=== PATIENT | male | born 1940 | race Caucasian/White ===

== ENCOUNTER 2017-02-20 10:07 | Inpatient (IN) ==
[2017-02-20] MEDS ORDERED: 0.9 % Sodium Chloride 500 ML IVC ONE (10:11)
--- NOTE | 2017-02-20 10:30 | Emergency Department Note ---
START Narrative - START START: I examined this patient and my medical decision-making was reviewed with the NETWORK ARCHITECT/PA/Advanced Practice Nurse/Resident Physician. I agree with the documented findings, disposition and treatment plan as described except to the extent set forth below. ED attending: Patient's emergency medicine resident Dr. Gonzalez. Please see copy of this note for H&P evaluation and management and ED disposition. We both had independent [id number] time in contact with this patient. Briefly: A 76-year-old male by EMS from the [facility] for shortness of breath and "A. fib". Patient has a history of esophageal cancer currently on active chemotherapy Orley [place]. No prior PE or DVT. Complaining of bilateral increasing swelling in both lower extremities. His EKG shows sinus tachycardia at about 135 bpm however there does not appear to be any signs of atrial fibrillation or irregularity. Patient is not on any current or anti-oral coagulants. Patient's PE score 4 pulse criteria for pulmonary embolism is moderate. Patient will obtain a chest x-ray D dimer troponin and other screening labs. Patient will get a small fluid bolus challenge of 500 mL normal saline to treat overdress the tachycardia. Disposition pending. Provided 45 minutes critical care service with this patient.
--- NOTE | 2017-02-20 10:31 | Emergency Department Note ---
Disposition Clinical Impression: Pleural effusion Disposition: Admitted As Inpatient Condition: Good Time of Disposition: 15:11 General Adult HPI - General Chief complaint: ED Arrhythmia/Palpitations Stated complaint: "AFIB" Time Seen by Provider: 02/20/17 10:09 Source: patient, family, EMS Limitations: no limitations Nursing Notes Reviewed: Yes Vital Signs Reviewed: Yes - History of Present Illness HPI Narrative: [facility] and [facility] d-dimer. As well as A. fib. Planing of a cough that's been productive for several months. Denies any chest pain. Also complaining of bilateral ankle swelling. This began this morning. Pain Scale: 0 - Related Data Home Medications Medication Instructions Recorded Confirmed RX: Albuterol Sulfate [Albuterol 2 puff IH Q6HR PRN 04/29/16 02/09/17 Inhaler] RX: Finasteride [Proscar] 5 mg GTUBE DAILY 04/29/16 02/09/17 RX: Nitroglycerin [Nitrostat] 0.4 mg SL AD PRN 04/29/16 02/09/17 RX: Magic Mouthwash [Magic 10 ml PO QID PRN 08/03/16 02/09/17 Mouthwash BLM] RX: Lanolin/Mineral Oil [Eucerin 1 appl TP DAILY 08/06/16 02/09/17 Original Lotion] RX: Loperamide [Imodium] 2 mg PO AD PRN 08/06/16 02/09/17 RX: Mag Hydrox/Al Hydrox/Simeth 10 ml PO TID 08/06/16 02/09/17 [Maalox] RX: Propylene Glycol/Peg 400 [Kro 1 drop OP QID 08/06/16 02/09/17 Lubricating Rlf 0.3-0.4%] RX: Terazosin [Hytrin] 2 mg PO HS 08/06/16 02/09/17 RX: Nicotine Patch [Nicoderm] 14 mg TD DAILY 12/31/16 02/09/17 Fludrocortisone Acetate [Florinef] 0.1 mg PO DAILY 01/19/17 02/09/17 Hydrocortisone 2.5% CREAM [Cortaid] 1 appl TP BID 01/19/17 02/09/17 Lactose-Reduced Food/Fiber 250 ml GTUBE 5XD 01/19/17 02/09/17 [Isosource 1.5 Oscar Liquid] Lansoprazole [Prevacid] 30 mg GTUBE DAILY 01/19/17 02/09/17 Oxycodone HCl [Oxaydo] 5 mg PO Q6H PRN 01/19/17 02/09/17 Prochlorperazine Maleate 10 mg PO Q6HR PRN 01/19/17 02/09/17 [Compazine] RX: Ondansetron HCl 4 mg GTUBE Q6H PRN 01/19/17 02/09/17 Sucralfate [Carafate] 1 gm GTUBE QID 01/19/17 02/09/17 Propylene Glycol/Peg 400 [Systane 15 ml OP QID PRN 02/09/17 02/09/17 Liquid Gel Eye Drops] Previous Rx's Medication Instructions Recorded Lactobacillus [Culturelle] 1 each PO TID #42 cap.sprink 02/09/17 RX: FentaNYL PATCH [Duragesic] 12 mcg TD Q72H #10 patch.td72 02/09/17 RX: FentaNYL PATCH [Duragesic] 25 mcg TD Q72H #10 patch.td72 02/09/17 metroNIDAZOLE [Flagyl] 500 mg PO TID #30 tablet 02/09/17 RX: Dexamethasone [Decadron] 4 mg PO DAILY #30 tab 02/16/17 Allergies Allergy/AdvReac Type Severity Reaction Status Date / Time No Known Allergies Allergy Verified 02/09/17 08:18 All systems ED: reviewed and negative except as stated. Constitutional: Denies: fever, chills ENT ED: Denies: throat pain, congestion Cardiovascular: Denies: chest pain, palpitations, dyspnea on exertion, syncope Respiratory: Reports: cough, dyspnea Gastrointestinal: Denies: abdominal pain, nausea, vomiting, diarrhea Musculoskeletal: Denies: back pain, neck pain Neurological: Denies: headache, weakness Past Medical History - Past Medical History Medical history: Reports: atrial fibrillation, cancer, COPD, hyperlipidemia, hypertension, malignancy, other Surgical history: Reports: cataract, other Psychiatric history: Reports: no psych history - Social History Smoking Status: Former smoker Smokeless Tobacco Status: No Alcohol use: Reports: none, recent Drug use: Reports: none Physical Exam - General Limitations: no limitations General appearance: alert, in no apparent distress - Head Head exam: atraumatic, normocephalic - Eye Eye exam: Present: normal appearance, PERRL, EOMI - ENT ENT exam: normal exam, normal oropharynx, mucous membranes moist - Neck Neck exam: Present: normal inspection, full ROM, trachea midline - Chest Chest inspection: Present: normal inspection, symmetric chest wall rise - Respiratory Respiratory exam: Present: wheezes (Diffusely) - Cardiovascular Cardiovascular exam: Present: normal rhythm, tachycardia, normal heart sounds - Abdominal Exam Abdominal exam: Present: soft, Non-Tender, normal bowel sounds - Extremities Exam Extremities exam: Present: normal inspection, full ROM, normal capillary refill , pedal edema (Very mild edema to both ankles bilaterally.). Absent: tenderness - Back Exam Back exam: Present: normal inspection, full ROM. Absent: tenderness - Neurological Exam Neurological exam: Present: alert, oriented X3 - Psychiatric Psychiatric exam: Present: normal affect, normal mood - Skin Skin exam: Present: warm, dry, intact, normal color. Absent: rash, cyanosis Course Course Narrative: Patient complaining of shortness of breath for over a year. States that he has had a cough that's been productive with yellow greenish sputum. Also complaining of bilateral ankle swelling. [facility]. I cannot find this in his lab work. With his history of cancer I expect his d-dimer to be elevated. We did repeat this year and it was still elevated so we CTA patient's chest. He is found to have large bilateral pleural effusions. Also some airspace disease. He denies any chest pain. He states that shortness of breath has been there for over a year. He states his sputum has been increased recently. He has failed outpatient therapy several times with antibiotics. He has no other complaints at this time. Patient had a chest pain workup as well as a CTA of his chest. We will admit patient for the effusions. Patient was initially given a small fluid bolus due to his tachycardia. This resolved it well. He is not febrile and had no white counts we did not run the sepsis criteria. - Reevaluation(s) Reevaluation #1: Patient is tachycardic. We've given him a small fluid bolus but he does have a history of CHF so we do not want to fluid overload him. We will also get a lactate. He is not febrile he is here. Time: 13:34 - Consultations Consultation #1: Dr Schmitt accepted Pt in stable condition. he is requesting no antibiotics at this time. Time: 13:39 Vital Signs Temperature 97.8 F 02/20/17 10:09 Pulse Rate 130 02/20/17 10:09 Respiratory Rate 18 02/20/17 10:09 Blood Pressure 159/93 02/20/17 10:09 O2 Sat by Pulse Oximetry 94 02/20/17 10:09 Temperature 97.6 F 02/20/17 14:18 Pulse Rate 126 02/20/17 14:18 Respiratory Rate 17 02/20/17 14:18 Blood Pressure 165/83 02/20/17 14:18 O2 Sat by Pulse Oximetry 95 02/20/17 14:18 Oxygen Delivery Oxygen Delivery Room Air Medical Decision Making - Medical Records Medical records reviewed: Yes I reviewed the patient's medical records. - Lab Data Lab results reviewed: Yes I reviewed the patient's lab results. Result diagrams: 02/20/17 11:20 Lab Results 02/20/17 02/20/17 02/20/17 Range/Units 11:20 11:20 11:20 D-Dimer 1181 H (0-500) ng/mLFEU Sodium 132 L (136-145) mEq/L Potassium 3.4 L (3.5-4.5) mEq/L Chloride 96 L (98-109) mEq/L Carbon Dioxide 27 (19-29) mEq/L BUN 8 (8-26) mg/dL Creatinine 0.56 L (0.72-1.25) mg/dL Est GFR ( Amer) > 60 (> 60) Est GFR (Non-Af Amer) > 60 (> 60) BUN/Creatinine Ratio 14 (6-26) Glucose 104 H (70-99) mg/dL Calculated Osmolality 273 L (280-300) Calcium 9.0 (8.6-10.8) mg/dL B-Natriuretic Peptide 776 H (0-100) pg/mL - Radiology Data Radiology results reviewed: Yes I reviewed the patient's radiology results. Chest X-Ray 02/20/17 10:28 IMPRESSION: Right basilar airspace disease with pleural effusion. Recommend correlation with any clinical findings of pneumonia. Asymmetric edema felt to be less likely D/ / Uriel Garcia MD / Uriel Garcia MD Interpreting Provider: Uriel Garcia MD Chest CTA 02/20/17 12:12 IMPRESSION: No evidence of pulmonary embolism. Very large right pleural effusion. Large left pleural effusion. Moderate bibasilar atelectasis. Pneumonia possible in either lower lobe. No definite CHF. No finding worrisome for malignancy. Slight bullous changes. RECOMMENDATIONS: Ultrasound-guided unilateral or bilateral thoracenteses for diagnostic and therapeutic benefits. D/ / Dilan Chu MD / Dilan Chu MD Interpreting Provider: Dilan Chu MD - EKG Data EKG #1 EKG attestation: Yes I reviewed and interpreted this EKG. EKG results narrative: Sinus tachycardia at a rate of 136. IA interval is 178. QRS duration is 115. QT is 3:30. QTC is 410. No signs of acute ischemia. Patient was in A. fib on previous EKG dated 12/31/2016.
[2017-02-20 11:44] LABS: BUN/Creatinine Ratio 14 (6-26); Blood Urea Nitrogen 8 mg/dL (8-26); Carbon Dioxide 27 mEq/L (19-29); Chloride 96 mEq/L (98-109); Glucose 104 mg/dL (70-99); Osmolality,Calculated 273 (280-300); Potassium 3.4 mEq/L (3.5-4.5); Sodium 132 mEq/L (136-145); eGFR For African Americans > 60 (> 60); eGFR For Non-African Americans > 60 (> 60)
[2017-02-20] MEDS ORDERED: Furosemide 40 MG/4 ML VIAL ONE (14:43)
[2017-02-20] MEDS ORDERED: Furosemide 40 MG/4 ML VIAL IVP ONE (14:48)
[2017-02-20] MEDS ORDERED: Acetaminophen 325 MG TABLET PO PRN (15:06)
[2017-02-20] MEDS ORDERED: Ondansetron 4 MG/2 ML VIAL IVP PRN (15:06)
[2017-02-20] MEDS ORDERED: Naloxone 0.4 MG/ML INJ IVP PRN (15:06)
[2017-02-20] MEDS ORDERED: *HR* Morphine 2 MG/ML SYRINGE IVP PRN (15:06)
--- NOTE | 2017-02-20 15:18 | Internal Med History&Physical ---
Date of Encounter: 02/20/17 Time of Encounter: 15:14 Assessment and Plan (1) Pleural effusion Current visit: No Status: Acute Bilateral pleural effusions worse on the right than the left likely secondary to systolic CHF exacerbation versus malignancy related (less likely) Start Lasix IV twice a day, strict I's and O's and daily weight Consult pulmonary for thoracentesis therapeutic and diagnostic Fluid restriction Omeprazole for GI prophylaxis and sequential compression devices for DVT prophylaxis. Admitted as inpatient, expected to stay more than 2 midnights. DNR CC. Time spent on this admission 40 minutes. High risk of respiratory failure (2) Clostridium difficile diarrhea Current visit: Yes Status: Acute Apparently the patient was diagnosed with C. difficile and was on metronidazole since the beginning of this month Confirm testing (3) HCAP (healthcare-associated pneumonia) Current visit: Yes Status: Acute Start cefepime, consider vancomycin if blood pressure drops (4) Hyponatremia Current visit: No Status: Acute Monitor sodium (5) Severe protein-calorie malnutrition Current visit: No Status: Acute (6) Atrial fibrillation with RVR Current visit: No Status: Acute Likely secondary to bilateral pleural effusions Start Lasix IV May start metoprolol (7) Esophageal cancer Current visit: No Status: Chronic Continue treatment as outpatient Qualifiers: Malignant neoplasm of esophagus location: lower third Qualified Code(s): C15.5 - Malignant neoplasm of lower third of esophagus Internal Medicine - H&P: HPI Chief complaint: Shortness of breath Admitted From: Emergency Dept History of present illness: Mr. Cantu is a 76 year old male with a past medical history of esophageal cancer on chemotherapy, hypertension, COPD not oxygen dependent, systolic CHF who was transferred from [facility] due to concerns of atrial fibrillation with rapid ventricular response. Patient says that his legs have been more swollen for the past few days and has been complaining of respiratory distress for the past few weeks but got worse earlier today at 4 AM. She has been having a dry cough. CT angiogram of the chest shows a very large right pleural effusion and a large left pleural effusion, pneumonia cannot be ruled out. Potassium is 3.4 sodium is 132 BNP 776 d-dimer is 1181. There is no evidence of pulmonary emboli. His heart rate was in the 130s, blood pressure is 163/90. Patient is feeling still very short of breath. 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), CHF (Systolic CHF echocardiogram from July 2016 shows an ejection fraction of 40%), COPD (Not oxygen dependent), GERD, hyperlipidemia, hypertension, malignancy, other ( Chronic pain syndrome, pulmonary hypertension, pericardial effusions, gallstones , chronic pain syndrome, peripheral vascular disease, olecranon bursitis, chronic prostatitis, hyperlipidemia) Psychiatric history: no psych history - Past Surgical History Surgical History: cataract, other (PEG tube) - Social History Smoking Status: Former smoker (Quit in December, used to smoke 1 pack per day) Smokeless Tobacco Status: No Alcohol use: none, recent Drug use: none - Family History Brother Hx Family Cancer: Yes (Esophageal cancer) Sister Hx Family Neurologic Disorders: Yes (Alzeheimer) Father Hx Family Cardiac Disorders: Yes (heart attack) - Additional Family History Additional family history: Brother with stomach cancer and esophageal cancer, sister with Alzheimer's and father with CAD Internal Medicine - H&P: Meds Albuterol Sulfate [Albuterol Inhaler] 2 puff IH Q6HR PRN 04/29/16 [History] Finasteride [Proscar] 5 mg GTUBE DAILY 04/29/16 [History] Nitroglycerin [Nitrostat] 0.4 mg SL AD PRN 04/29/16 [History] Magic Mouthwash [Magic Mouthwash BLM] 10 ml PO QID PRN 08/03/16 [History] Lanolin/Mineral Oil [Eucerin Original Lotion] 1 appl TP DAILY 08/06/16 [History] Loperamide [Imodium] 2 mg PO AD PRN 08/06/16 [History] Mag Hydrox/Al Hydrox/Simeth [Maalox] 10 ml PO TID 08/06/16 [History] Propylene Glycol/Peg 400 [Kro Lubricating Rlf 0.3-0.4%] 1 drop OP QID 08/06/16 [ History] Terazosin [Hytrin] 2 mg PO HS 08/06/16 [History] Nicotine Patch [Nicoderm] 14 mg TD DAILY 12/31/16 [History] Fludrocortisone Acetate [Florinef] 0.1 mg PO DAILY 01/19/17 [History] Hydrocortisone 2.5% CREAM [Cortaid] 1 appl TP BID 01/19/17 [History] Lactose-Reduced Food/Fiber [Isosource 1.5 Oscar Liquid] 250 ml GTUBE 5XD 01/19/17 [History] Lansoprazole [Prevacid] 30 mg GTUBE DAILY 01/19/17 [History] Ondansetron HCl 4 mg GTUBE Q6H PRN 01/19/17 [History] Oxycodone HCl [Oxaydo] 5 mg PO Q6H PRN 01/19/17 [History] Prochlorperazine Maleate [Compazine] 10 mg PO Q6HR PRN 01/19/17 [History] Sucralfate [Carafate] 1 gm GTUBE QID 01/19/17 [History] FentaNYL PATCH [Duragesic] 12 mcg TD Q72H #10 patch.td72 02/09/17 [Rx] FentaNYL PATCH [Duragesic] 25 mcg TD Q72H #10 patch.td72 02/09/17 [Rx] Lactobacillus [Culturelle] 1 each PO TID #42 cap.sprink 02/09/17 [Rx] Propylene Glycol/Peg 400 [Systane Liquid Gel Eye Drops] 15 ml OP QID PRN [History] metroNIDAZOLE [Flagyl] 500 mg PO TID #30 tablet 02/09/17 [Rx] Dexamethasone [Decadron] 4 mg PO DAILY #30 tab 02/16/17 [Rx] Allergies No Known Allergies Allergy (Verified 02/09/17 08:18) All Systems PM: A 10-system review of systems was performed and is negative for pertinent findings except as documented above in the HPI. Review of systems: Denies any chest pain, no abdominal pain, no dysuria. Other systems out of the 10 reviewed were negative - Constitutional Vitals: Temp Pulse Resp BP Pulse Ox 97.6 F 126 17 165/83 95 02/20/17 14:18 02/20/17 14:18 02/20/17 14:18 02/20/17 14:18 02/20/17 14:18 General appearance: Present: cachectic, A&O X 3 - Head Head exam: Present: atraumatic, normocephalic - Eye Eye exam: Present: PERRL, conjuntiva pink, sclera anicteric Pupils: Present: PERRL - Neck Neck exam general surgery: Present: supple, trachea midline. Absent: lymphadenopathy - Respiratory Respiratory exam: Present: CTAB. Absent: accessory muscle use, rales, rhonchi, wheezes Additional comments: Blunted breath sounds bilaterally - Cardiovascular Cardiovascular exam: Present: RRR, +S1, +S2. Absent: diastolic murmur, gallop, rubs, systolic murmur - GI/Abdominal GI/Abdominal exam: Present: normal bowel sounds, soft, no peritoneal signs. Absent: distended, tenderness Additional comments: PEG tube in place - Extremities Exam Extremities exam: Present: warm, radial pulses palpable and symetrical. Absent : calf tenderness, cyanotic, pedal edema - Neurological Exam Neurological exam: Present: CN II-XII intact, oriented X3, no focal deficits. Absent: pronater drift, facial droop, speech deficit - Skin Skin exam: Present: dry, intact Internal Med - H&P Results - Labs CBC & Chem 7: 02/20/17 11:20
[2017-02-20] MEDS: Furosemide 40 MG/4 ML VIAL IVP SCH (16:07)
[2017-02-20] MEDS: *HR* FentaNYL PATCH 25 MCG PATCH TD SCH (16:10)
[2017-02-20] MEDS: *HR* FentaNYL PATCH 12 MCG PATCH TD SCH (16:10)
[2017-02-20] MEDS ORDERED: *HR* Metoprolol 5 MG/5 ML VIAL IVP PRN (16:31)
[2017-02-20] MEDS: Cefepime HCl 1,000 MG in D5% in Water (Mini-Bag+) 100 ML IVPB SCH (16:52)
[2017-02-20] MEDS: metroNIDAZOLE 500 MG TABLET PO SCH (20:07)
[2017-02-20] MEDS: *HR* OxyCODONE Immed Rel 5 MG TABLET PO PRN (20:26)
[2017-02-20] MEDS ORDERED: GI Cocktail 40 ML EACH PO ONE (22:42)
[2017-02-21 04:14] LABS: INR 1.3; Prothrombin Time 14.5 Seconds (9.4-12.1)
[2017-02-21 04:16] LABS: Hematocrit 29.3 % (37.5-50.1); Hemoglobin 9.6 g/dL (12.9-16.9); Mean Corpuscular HGB Conc 32.8 g/dL (31.6-35.5); Mean Corpuscular Hemoglobin 30.1 pg (28.0-33.3); Mean Corpuscular Volume 91.8 fL (83.0-100.0); Platelet Count 262 K/mcL (140-400); Red Blood Count 3.19 M/mcL (4.19-5.50); Red Cell Distribution Width 16.8 % (11.5-14.5)
[2017-02-21 04:24] LABS: BUN/Creatinine Ratio 16 (6-26); Blood Urea Nitrogen 9 mg/dL (8-26); Calcium 8.8 mg/dL (8.6-10.8); Carbon Dioxide 26 mEq/L (19-29); Chloride 97 mEq/L (98-109); Glucose 92 mg/dL (70-99); Osmolality,Calculated 270 (280-300); Potassium 3.6 mEq/L (3.5-4.5); Sodium 131 mEq/L (136-145); eGFR For African Americans > 60 (> 60); eGFR For Non-African Americans > 60 (> 60)
[2017-02-21] MEDS: Cefepime HCl 1,000 MG in D5% in Water (Mini-Bag+) 100 ML IVPB SCH ×2 (06:01→17:40)
[2017-02-21] MEDS: *HR* OxyCODONE Immed Rel 5 MG TABLET PO PRN (08:48)
[2017-02-21] MEDS: Finasteride 5 MG TABLET PO SCH (08:48)
[2017-02-21] MEDS: metroNIDAZOLE 500 MG TABLET PO SCH (08:48)
[2017-02-21] MEDS: Furosemide 40 MG/4 ML VIAL IVP SCH ×2 (08:49→17:40)
[2017-02-21] MEDS ORDERED: Lidocaine 1% 20 ML MDV ID ONE (09:52)
--- NOTE | 2017-02-21 10:21 | Pulmonology Consult Note ---
Date of Encounter: 02/21/17 Time of Encounter: 07:45 Assessment and Plan (1) Bilateral pleural effusion Current Visit: Yes Status: Acute I have assessed the patient and found him in no acute distress, however patient feels more difficulty breathing and recommended diagnostic and therapeutic thoracentesis for comfort and even Pleurx pleural catheter after confirming this is malignant effusion. I evaluated with ultrasound at the bedside, unfortunately was not able to drain any fluid which is most likely due to the nature of the fluid is being thick. This was discussed with primary team and perhaps IR can attempt to drain the fluid with a larger tube and if they can do that then to send cytology. If malignant then Pleurx pleural catheter can be considered as outpatient. It is very hard to rule out pneumonia and this patient and empiric antibiotics is reasonable until cultures are back. Thank you very much for the consultation, will follow-up.. (2) COPD (chronic obstructive pulmonary disease) Current Visit: Yes Status: Chronic Patient history of COPD and to resume his home bronchodilators. Qualifiers: COPD type: unspecified COPD Qualified Code(s): J44.9 - Chronic obstructive pulmonary disease, unspecified (3) Esophageal cancer Current Visit: No Status: Chronic Qualifiers: Malignant neoplasm of esophagus location: lower third Qualified Code(s): C15.5 - Malignant neoplasm of lower third of esophagus History of Present Illness Consult date: 02/21/17 Requesting physician: Karan Jorgensen Reason for consult: dyspnea, pleural effusion Chief complaint: Shortness of breath History of present illness: This is a very pleasant 76-year-old male with significant history of esophageal cancer on chemotherapy as well as COPD and systolic congestive heart failure was transferred from [facility] due to concerns of A. fib with RVR. Patient was found to have large mainly right-sided pleural effusion as well as a moderate size effusion in the left side. Patient has been having more shortness of breath in the past few weeks which is worse in since yesterday. He also has dry cough and denies any hemoptysis or chest pain. His main problem complaining of pain in his hip and back. He denies any fever or chill and denies any history of TB. I was consulted for evaluation of his chief complaints as well as a thoracentesis. Patient has somewhat hard of hearing. 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), CHF (Systolic CHF echocardiogram from July 2016 shows an ejection fraction of 40%), COPD (Not oxygen dependent), GERD, hyperlipidemia, hypertension, malignancy, other ( Chronic pain syndrome, pulmonary hypertension, pericardial effusions, gallstones , chronic pain syndrome, peripheral vascular disease, olecranon bursitis, chronic prostatitis, hyperlipidemia) Psychiatric history: no psych history - Past Surgical History Surgical History: cataract, other (PEG tube) - Social History Smoking Status: Former smoker (Quit in December, used to smoke 1 pack per day) Smokeless Tobacco Status: No Alcohol use: none, recent Drug use: none - Family History Brother Hx Family Cancer: Yes (Esophageal cancer) Sister Hx Family Neurologic Disorders: Yes (Alzeheimer) Father Hx Family Cardiac Disorders: Yes (heart attack) Medications and Allergies Albuterol Sulfate [Albuterol Inhaler] 2 puff IH Q6HR PRN 04/29/16 [History] Magic Mouthwash [Magic Mouthwash BLM] 10 ml PO Q4H PRN 08/03/16 [History] Lanolin/Mineral Oil [Eucerin Original Lotion] 1 appl TP DAILY 08/06/16 [History] Loperamide [Imodium] 2 mg PO AD PRN 08/06/16 [History] Mag Hydrox/Al Hydrox/Simeth [Maalox] 20 ml PO TID PRN 08/06/16 [History] Propylene Glycol/Peg 400 [Kro Lubricating Rlf 0.3-0.4%] 1 drop OP QID 08/06/16 [ History] Nicotine Patch [Nicoderm] 14 mg TD DAILY 12/31/16 [History] Fludrocortisone Acetate [Florinef] 0.1 mg PO DAILY 01/19/17 [History] Hydrocortisone 2.5% CREAM [Cortaid] 1 appl TP TID PRN 01/19/17 [History] Lactose-Reduced Food/Fiber [Isosource 1.5 Oscar Liquid] 250 ml GTUBE 5XD 01/19/17 [History] Lansoprazole [Prevacid] 30 mg PO DAILY 01/19/17 [History] Ondansetron HCl 4 mg PO Q6H PRN 01/19/17 [History] Oxycodone HCl [Oxaydo] 5 mg PO Q8H PRN 01/19/17 [History] Sucralfate [Carafate] 1 gm GTUBE QID 01/19/17 [History] FentaNYL PATCH [Duragesic] 12 mcg TD Q72H #10 patch.td72 02/09/17 [Rx] FentaNYL PATCH [Duragesic] 25 mcg TD Q72H #10 patch.td72 02/09/17 [Rx] Budesonide/Formoterol 160/4.5 [Symbicort 160/4.5] 1 puff IH BID 02/20/17 [ History] Diphenhydramine HCl [Nighttime Sleep Aid] 50 mg PO BID PRN 02/20/17 [History] Docusate [Colace] 100 mg PO BID 02/20/17 [History] Lactobacillus [Culturelle] 1 cap PO TID 02/20/17 [History] Levalbuterol HCl [Xopenex Neb] 1.25 mg IH Q4H PRN 02/20/17 [History] Levalbuterol [Xopenex] 1 puff IH Q6H PRN 02/20/17 [History] Nicotine [Nicotine Patch] 7 mg TD DAILY 02/20/17 [History] Polyethylene Glycol 3350 [Smoothlax] 17 gm PO DAILY 02/20/17 [History] Prochlorperazine Maleate 10 mg PO Q6H PRN 02/20/17 [History] Sodium Chloride IRRigation [0.9% Sodium Chl For Irrigation 250 Ml Bottle] 20 ml GTUBE BID 02/20/17 [History] Tamsulosin [Flomax] 0.4 mg PO HS 02/20/17 [History] Allergies No Known Allergies Allergy (Verified 02/09/17 08:18) All Systems: A 10-system review of systems was performed and is negative for pertinent findings except as documented above in the HPI. Physical Examination Vital Signs: Vital Signs, Last 4 Hours Temp Pulse Resp BP Pulse Ox 02/21/17 09:13 94 02/21/17 07:37 97.6 F 80 16 145/72 92 General appearance: no acute distress Eyes: nonicteric ENT: oropharynx dry Neck: supple, no JVD Effort: mildly labored (When he mows around) Inspection: hyperextended Auscultation: bilateral: diminished breath sounds (Right more than left) Percussion: bilateral: dull Cardiovascular: irregular rhythm Gastrointestinal: normoactive bowel sounds, non-distended, other (Patient has a PEG tube) Extremities: no cyanosis normal mental status, non-focal exam mood appropriate Results - Laboratory Findings CBC and BMP: 02/21/17 03:59 02/21/17 03:59 PT/INR, D-dimer PT 14.5 Seconds (9.4-12.1) H 02/21/17 03:59 D-Dimer 1181 ng/mLFEU (0-500) H 02/20/17 11:20 Abnormal lab findings: Abnormal lab results RBC 3.19 M/mcL (4.19-5.50) L 02/21/17 03:59 Hgb 9.6 g/dL (12.9-16.9) L 02/21/17 03:59 Hct 29.3 % (37.5-50.1) L 02/21/17 03:59 RDW 16.8 % (11.5-14.5) H 02/21/17 03:59 PT 14.5 Seconds (9.4-12.1) H 02/21/17 03:59 D-Dimer 1181 ng/mLFEU (0-500) H 02/20/17 11:20 Sodium 131 mEq/L (136-145) L 02/21/17 03:59 Chloride 97 mEq/L (98-109) L 02/21/17 03:59 Creatinine 0.56 mg/dL (0.72-1.25) L 02/21/17 03:59 Calculated Osmolality 270 (280-300) L 02/21/17 03:59 B-Natriuretic Peptide 776 pg/mL (0-100) H 02/20/17 11:20 - Diagnostic Findings CT scan - chest: report reviewed, image reviewed - Clinical Findings Intake & Output: Intake & Output 02/20/17 02/21/17 02/21/17 23:59 07:59 15:59 Intake Total 160 / 160 1400 / 1400 Output Total 0 / 0 Balance 160 / 160 1400 / 1400 Weight 59.421 kg Consult Discharge Plan - Plan [facility]: [facility] Care Provider[facility] -
[2017-02-21] MEDS ORDERED: Ipratropium/Albuterol Neb 3 ML IH PRN (10:32)
--- NOTE | 2017-02-21 10:37 | Procedure Note ---
Date of procedure: 02/21/17 Pre-op diagnosis: Bilateral pleural effusion with dyspnea Post-op diagnosis: same Procedure: Diagnostic and therapeutic thoracentesis Medications: Local lidocaine 1% 20 mL No immediate complications After obtaining informed consent and timeout was called, the patient was placed in a sitting position. Using ultrasound, the right hemithorax was examined revealing a moderately sized pleural effusion. The best entry site was marked. The area was prepped in the usual sterile fashion. Fluid was not able to be aspirated using a catheter 8 range over 18-gauge needle. Patient's condition did not change after the procedure. Chest x-ray was ordered for any evidence of pneumothorax or complications. Anesthesia: local Surgeon: Symone Wong Disposition: floor
--- NOTE | 2017-02-21 12:44 | Electrocardiograph Report ---
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
--- NOTE | 2017-02-21 14:57 | Internal Med Progress Note ---
Date of Encounter: 02/21/17 Time of Encounter: 14:54 - Assessment and plan (1) Pleural effusion Current Visit: No Status: Acute Assessment and plan: Bilateral pleural effusions worse on the right than the left likely secondary to malignancy versus systolic CHF exacerbation(less likely) May continue Lasix IV twice a day, strict I's and O's and daily weight Consulted pulmonary for thoracentesis therapeutic and diagnostic, procedure was attempted unsuccessfully as apparently the fluid is extremely thick and was not able to be drained by Dr. Gonzalez We will consult interventional radiology in the morning to attempt thoracentesis versus chest tube next Might need Pleurx catheter (2) Clostridium difficile diarrhea Current Visit: Yes Status: Acute Assessment and plan: Discontinue metronidazole as Clostridium difficile he was negative (3) HCAP (healthcare-associated pneumonia) Current Visit: Yes Status: Acute Assessment and plan: Continue cefepime day 2 [address] scan shows bilateral pleural effusions right worse on the left with possible infiltrates bilaterally (4) Hyponatremia Current Visit: No Status: Acute (5) Severe protein-calorie malnutrition Current Visit: No Status: Acute (6) Atrial fibrillation with RVR Current Visit: No Status: Acute Assessment and plan: Likely secondary to bilateral pleural effusions Continue metoprolol (7) Esophageal cancer Current Visit: No Status: Chronic Assessment and plan: Continue treatment as outpatient - Subjective Interval history: shortness of breath persists, denies any chest pain, no abdominal pain, no dysuria, no diarrhea, no dizziness or fevers - Constitutional Vitals: Temp Pulse Resp BP Pulse Ox 97.6 F 72 16 124/65 95 02/21/17 11:37 02/21/17 11:37 02/21/17 11:37 02/21/17 11:37 02/21/17 11:37 General appearance: Present: cachectic, A&O X 3 - Head Head exam: Present: atraumatic, normocephalic - Eye Eye exam: Present: PERRL, conjuntiva pink, sclera anicteric Pupils: Present: PERRL - Neck Neck exam general surgery: Present: supple, trachea midline. Absent: lymphadenopathy - Respiratory Respiratory exam: Present: CTAB. Absent: accessory muscle use, rales, rhonchi, wheezes Additional comments: Basilar Blunted breath sounds bilaterally - Cardiovascular Cardiovascular exam: Present: RRR, +S1, +S2. Absent: diastolic murmur, gallop, rubs, systolic murmur - GI/Abdominal GI/Abdominal exam: Present: normal bowel sounds, soft, no peritoneal signs. Absent: distended, tenderness Additional comments: PEG tube in place - Extremities Exam Extremities exam: Present: warm, radial pulses palpable and symetrical. Absent : calf tenderness, cyanotic, pedal edema - Neurological Exam Neurological exam: Present: CN II-XII intact, oriented X3, no focal deficits. Absent: pronater drift, facial droop, speech deficit - Skin Skin exam: Present: dry, intact Internal Medicine: Result - Labs CBC & Chem 7: 02/21/17 03:59 02/21/17 03:59 Labs: Short CBC 02/21/17 Range/Units 03:59 WBC 5.9 (4.3-11.1) K/mcL Hgb 9.6 L (12.9-16.9) g/dL Hct 29.3 L (37.5-50.1) % Plt Count 262 (140-400) K/mcL [facility] 02/21/17 03:59 Sodium 131 L Potassium 3.6 Chloride 97 L Carbon Dioxide 26 BUN 9 Creatinine 0.56 L Glucose 92 Calcium 8.8 - ABG Interpretation ABG results: PT/INR, D-dimer PT 14.5 Seconds (9.4-12.1) H 02/21/17 03:59 D-Dimer 1181 ng/mLFEU (0-500) H 02/20/17 11:20 - Impressions Impressions Chest X-Ray 02/21/17 09:52 IMPRESSION: Stable chest, demonstrating bilateral pleural effusions, with bibasilar atelectasis/infiltrate, superimposed on COPD. D/ / 02/21/2017 10:29:08 Kevin Brown MD / millie Interpreting Provider: Kevin Brown MD Consult Discharge Plan - Plan [facility]errals: [facility] [Primary Care Provider] -
[2017-02-21] MEDS: Budesonide/Formoterol 160/4.5 MDI IH SCH (20:03)
[2017-02-22 04:30] LABS: Hematocrit 32.6 % (37.5-50.1); Hemoglobin 10.6 g/dL (12.9-16.9); Mean Corpuscular HGB Conc 32.5 g/dL (31.6-35.5); Mean Corpuscular Hemoglobin 29.9 pg (28.0-33.3); Mean Corpuscular Volume 92.1 fL (83.0-100.0); Mean Platelet Volume 10.7 fL (9.4-12.4); Platelet Count 314 K/mcL (140-400); Red Blood Count 3.54 M/mcL (4.19-5.50); Red Cell Distribution Width 16.8 % (11.5-14.5)
[2017-02-22 04:39] LABS: BUN/Creatinine Ratio 22 (6-26); Blood Urea Nitrogen 14 mg/dL (8-26); Calcium 9.3 mg/dL (8.6-10.8); Carbon Dioxide 26 mEq/L (19-29); Chloride 93 mEq/L (98-109); Glucose 114 mg/dL (70-99); Osmolality,Calculated 271 (280-300); Potassium 3.4 mEq/L (3.5-4.5); Sodium 130 mEq/L (136-145); eGFR For African Americans > 60 (> 60); eGFR For Non-African Americans > 60 (> 60)
[2017-02-22] MEDS: Cefepime HCl 1,000 MG in D5% in Water (Mini-Bag+) 100 ML IVPB SCH ×2 (05:37→17:12)
[2017-02-22] MEDS: Furosemide 40 MG/4 ML VIAL IVP SCH ×2 (07:51→17:12)
[2017-02-22] MEDS: Finasteride 5 MG TABLET PO SCH (07:51)
[2017-02-22] MEDS: Budesonide/Formoterol 160/4.5 MDI IH SCH ×2 (08:16→20:27)
--- NOTE | 2017-02-22 09:13 | Pulmonology Progress Note ---
<SeunAly calderon - Last Filed: 02/22/17 09:29> Date of Encounter: 02/22/17 Time of Encounter: 09:13 Assessment and Plan (1) Bilateral pleural effusion Current Visit: Yes Status: Acute Mr. Cantu presented with shortness of breath found to have a large left pleural effusion and very large right pleural effusion on CT of the chest performed 02/20/2017. Therapeutic thoracentesis was attempted yesterday evening without success given the nature of the fluid was likely too thick. Today he continues to have the feeling of shortness of breath or maintains oxygen saturations greater than 90% on room air. He complains of right sided chest pain is described as sharp. - Physical examination demonstrated diminished breath sounds in the bilateral lower lung bases right worse than left. Dullness to percussion in the lung bases. - Patient has a known history of systolic heart failure with an ejection fraction of 40%, BNP was around 700 with low suspicion that his current presentation is from CHF exacerbation. Atrial fibrillation is rate controlled. - Consult was placed to interventional radiology to perform thoracentesis - Cytology to be performed on pleural fluid with high suspicion for malignancy. - Patient may require Pleurx catheter placement. (2) COPD (chronic obstructive pulmonary disease) Current Visit: Yes Status: Chronic Patient is a known history of COPD, currently clinically stable without signs of exacerbation. - Continue home bronchodilators Qualifiers: COPD type: unspecified COPD Qualified Code(s): J44.9 - Chronic obstructive pulmonary disease, unspecified (3) Esophageal cancer Current Visit: No Status: Chronic Patient has known neoplasms a lower third of his esophagus. He states that his last chemotherapy was in January. Qualifiers: Malignant neoplasm of esophagus location: lower third Qualified Code(s): C15.5 - Malignant neoplasm of lower third of esophagus Subjective Principal diagnosis: Pleural effusion Interval history: Mr. Cantu 76-year-old male seen and evaluated the patient bedside this morning. He is sitting up alert awake interactive no acute distress complaining of some mild right-sided chest pain. He states that his chest pain started becoming intolerable last evening but has subsided this morning. He described the chest pain is sharp and localized to his right lateral chest. He continues to have shortness of breath which he says is exacerbated by leaning back. He is awaiting his procedure today has no other concerns or complaints. Objective PUL Vital signs: Last Vital Signs Temp 97.7 F 02/22/17 06:50 Pulse 99 02/22/17 06:50 Resp 18 02/22/17 06:50 BP 157/66 02/22/17 06:50 Pulse Ox 97 02/22/17 06:50 General appearance: no acute distress, alert, other (Very thin male cachectic appearing.) Eyes: nonicteric ENT: oropharynx moist Neck: supple, no lymphadenopathy, no JVD Effort: normal Auscultation: bilateral: diminished breath sounds (Patient has diminished breath sounds in the lower lung bases, clear to auscultation upper lung marks.) Percussion: bilateral: dull (Dalai percussion on the right lung to midway) Gastrointestinal: normoactive bowel sounds, hypoactive bowel sounds, non- distended Integumentary: normal Extremities: no cyanosis, no edema, no clubbing, pink and warm Musculoskeletal: no deformities normal mental status, non-focal exam mood appropriate, affect normal Results - Laboratory Findings CBC and BMP: 02/22/17 03:10 02/22/17 03:10 PT/INR, D-dimer PT 14.5 Seconds (9.4-12.1) H 02/21/17 03:59 D-Dimer 1181 ng/mLFEU (0-500) H 02/20/17 11:20 Abnormal lab findings: Abnormal lab results RBC 3.54 M/mcL (4.19-5.50) L 02/22/17 03:10 Hgb 10.6 g/dL (12.9-16.9) L 02/22/17 03:10 Hct 32.6 % (37.5-50.1) L 02/22/17 03:10 RDW 16.8 % (11.5-14.5) H 02/22/17 03:10 PT 14.5 Seconds (9.4-12.1) H 02/21/17 03:59 D-Dimer 1181 ng/mLFEU (0-500) H 02/20/17 11:20 Sodium 130 mEq/L (136-145) L 02/22/17 03:10 Potassium 3.4 mEq/L (3.5-4.5) L 02/22/17 03:10 Chloride 93 mEq/L (98-109) L 02/22/17 03:10 Creatinine 0.64 mg/dL (0.72-1.25) L 02/22/17 03:10 Glucose 114 mg/dL (70-99) H 02/22/17 03:10 Calculated Osmolality 271 (280-300) L 02/22/17 03:10 B-Natriuretic Peptide 776 pg/mL (0-100) H 02/20/17 11:20 - Clinical Findings Intake & Output: Intake & Output 02/21/17 02/22/17 02/22/17 23:59 07:59 15:59 Intake Total 100 / 100 Balance 100 / 100 Weight 58.604 kg Consult Discharge Plan - Plan Referrals: [facility] [Primary Care Provider] - <Stevie Vázquez W - Last Filed: 02/22/17 16:22> Date of Encounter: 02/22/17 Objective PUL Vital signs: Last Vital Signs Temp 97.4 F L 02/22/17 12:45 Pulse 76 02/22/17 12:45 Resp 18 02/22/17 12:45 BP 156/61 02/22/17 12:45 Pulse Ox 98 02/22/17 12:45 Results - Laboratory Findings CBC and BMP: 02/22/17 03:10 02/22/17 03:10 PT/INR, D-dimer PT 14.5 Seconds (9.4-12.1) H 02/21/17 03:59 D-Dimer 1181 ng/mLFEU (0-500) H 02/20/17 11:20 Abnormal lab findings: Abnormal lab results RBC 3.54 M/mcL (4.19-5.50) L 02/22/17 03:10 Hgb 10.6 g/dL (12.9-16.9) L 02/22/17 03:10 Hct 32.6 % (37.5-50.1) L 02/22/17 03:10 RDW 16.8 % (11.5-14.5) H 02/22/17 03:10 PT 14.5 Seconds (9.4-12.1) H 02/21/17 03:59 D-Dimer 1181 ng/mLFEU (0-500) H 02/20/17 11:20 Sodium 130 mEq/L (136-145) L 02/22/17 03:10 Potassium 3.4 mEq/L (3.5-4.5) L 02/22/17 03:10 Chloride 93 mEq/L (98-109) L 02/22/17 03:10 Creatinine 0.64 mg/dL (0.72-1.25) L 02/22/17 03:10 Glucose 114 mg/dL (70-99) H 02/22/17 03:10 Calculated Osmolality 271 (280-300) L 02/22/17 03:10 B-Natriuretic Peptide 776 pg/mL (0-100) H 02/20/17 11:20 Pleural Appearance Hazy (Clear) A 02/22/17 11:30 Pleural Tot Nuc Cell 4741 TNC/mcL (0-1000) H 02/22/17 11:30 - Clinical Findings Intake & Output: Intake & Output 02/22/17 02/22/17 02/22/17 07:59 15:59 23:59 Intake Total 160 / 160 Output Total 1680 / 1680 Balance -1520 / -1520 Weight 58.604 kg - Attending Attestation I examined this patient and my medical decision-making was reviewed with the TOP SPOTTER/PA/Advanced Practice Nurse/Resident Physician. I agree with the documented findings, disposition and treatment plan as described except to the extent set forth below. 76-year-old with a history of esophageal carcinoma found to have bilateral effusions right greater than left status post chest tube today. Patient has had approximate a 1600 mL out of right pigtail drain would clamp at this time Ok to re-open the drain to suction in the morning. Based upon output will consider reimage with CT scan. Pleural fluid analysis pending - if malignant may be candidate for Pleurx catheter Cont treatment for CHF per primary medicine service. We will continue to follow
--- NOTE | 2017-02-22 11:58 | IR Procedure Note ---
Date of procedure: 02/22/17 Consent Obtained: Written consent Timeout: Correct patient and procedure verified, Correct site verified, Time out performed, Skin prep completed Local anesthetic: Lidocaine 1% Indications: Right effusion Procedure Performed: Chest tube placement. Site/Technique: Right chest Results/Findings: 14fr drain placed after failed thora with 8fr Estimated blood loss (cc): 1 Complications: None; Tolerated procedure well Post Procedure Treatment Plan: Monitoring in pts room
--- NOTE | 2017-02-22 13:35 | Internal Med Progress Note ---
Date of Encounter: 02/22/17 Time of Encounter: 13:33 - Assessment and plan (1) Pleural effusion Current Visit: No Status: Acute Assessment and plan: Bilateral pleural effusions worse on the right than the left likely secondary to malignancy versus systolic CHF exacerbation(less likely) May continue Lasix IV twice a day, strict I's and O's and daily weight Consulted pulmonary for thoracentesis therapeutic and diagnostic, procedure was attempted unsuccessfully as apparently the fluid is extremely thick and was not able to be drained by Dr. Gonzalez Interventional radiology placed chest tube lab test sent including cytology Might need Pleurx catheter (2) Clostridium difficile diarrhea Current Visit: Yes Status: Acute Assessment and plan: Discontinued metronidazole as Clostridium difficile he was negative (3) HCAP (healthcare-associated pneumonia) Current Visit: Yes Status: Acute Assessment and plan: Continue cefepime day 3 CT scan shows bilateral pleural effusions right worse on the left with possible infiltrates bilaterally (4) Hyponatremia Current Visit: No Status: Acute (5) Severe protein-calorie malnutrition Current Visit: No Status: Acute (6) Atrial fibrillation with RVR Current Visit: No Status: Acute Assessment and plan: Likely secondary to bilateral pleural effusions Continue metoprolol (7) Esophageal cancer Current Visit: No Status: Chronic Assessment and plan: Continue treatment as outpatient - Subjective Interval history: Feeling less short of breath , denies any chest pain, no abdominal pain, no dysuria, no diarrhea, no dizziness or fevers - Constitutional Vitals: Temp Pulse Resp BP Pulse Ox 97.4 F L 76 18 156/61 98 02/22/17 12:45 02/22/17 12:45 02/22/17 12:45 02/22/17 12:45 02/22/17 12:45 General appearance: Present: cachectic, A&O X 3 - Head Head exam: Present: atraumatic, normocephalic - Eye Eye exam: Present: PERRL, conjuntiva pink, sclera anicteric Pupils: Present: PERRL - Neck Neck exam general surgery: Present: supple, trachea midline. Absent: lymphadenopathy - Respiratory Respiratory exam: Present: CTAB. Absent: accessory muscle use, rales, rhonchi, wheezes Additional comments: Left base blunted breath sounds Right base chest tube in place with yellowish fluid - Cardiovascular Cardiovascular exam: Present: RRR, +S1, +S2. Absent: diastolic murmur, gallop, rubs, systolic murmur - GI/Abdominal GI/Abdominal exam: Present: distended (PEG tube), normal bowel sounds, soft, no peritoneal signs. Absent: tenderness - Extremities Exam Extremities exam: Present: warm, radial pulses palpable and symetrical. Absent : calf tenderness, cyanotic, pedal edema - Neurological Exam Neurological exam: Present: CN II-XII intact, oriented X3, no focal deficits. Absent: pronater drift, facial droop, speech deficit - Skin Skin exam: Present: dry, intact Internal Medicine: Result - Labs CBC & Chem 7: 02/22/17 03:10 02/22/17 03:10 Labs: Short CBC 02/22/17 Range/Units 03:10 WBC 9.0 D (4.3-11.1) K/mcL Hgb 10.6 L (12.9-16.9) g/dL Hct 32.6 L (37.5-50.1) % Plt Count 314 (140-400) K/mcL [facility] 02/22/17 03:10 Sodium 130 L Potassium 3.4 L Chloride 93 L Carbon Dioxide 26 BUN 14 Creatinine 0.64 L Glucose 114 H Calcium 9.3 - ABG Interpretation ABG results: PT/INR, D-dimer PT 14.5 Seconds (9.4-12.1) H 02/21/17 03:59 D-Dimer 1181 ng/mLFEU (0-500) H 02/20/17 11:20 - Impressions Impressions Chest X-Ray 02/22/17 11:57 IMPRESSION: 1. Small right apical pneumothorax following placement of a right-sided chest tube. 2. Small bilateral pleural effusions, not significantly changed. 3. Increasing pulmonary vascular congestion. Results of this examination were communicated to Dr. Chappell at 12:46 p.m. on 02/22/2017. D/ / Jose Guillen MD / Jose Guillen MD Interpreting Provider: Jose Guillen MD Consult Discharge Plan - Plan [facility]errals: [facility] [Primary Care Provider] -
[2017-02-22 14:41] LABS: Glucose,Pleural Fluid 123 mg/dL (No Ref Range); LDH,Pleural Fluid 244 Units/L (No Ref Range); Total Protein,Pleural Fluid 2.5 g/dL (No Ref Range); Triglycerides, Pleural Fluid 8 mg/dL (No Ref Range)
[2017-02-22 14:43] LABS: Amylase,Pleural Fluid 15 Units/L (No Ref Range)
[2017-02-22 14:44] LABS: RBC,Pleural Fluid < 0.002 M/mcL
[2017-02-22 15:24] LABS: Appearance of Pleural Fl Hazy (Clear)
[2017-02-23 05:26] LABS: Hematocrit 29.8 % (37.5-50.1); Hemoglobin 9.7 g/dL (12.9-16.9); Mean Corpuscular HGB Conc 32.6 g/dL (31.6-35.5); Mean Corpuscular Hemoglobin 29.8 pg (28.0-33.3); Mean Corpuscular Volume 91.4 fL (83.0-100.0); Mean Platelet Volume 10.4 fL (9.4-12.4); Platelet Count 265 K/mcL (140-400); Red Blood Count 3.26 M/mcL (4.19-5.50); Red Cell Distribution Width 16.8 % (11.5-14.5)
[2017-02-23 05:36] LABS: BUN/Creatinine Ratio 24 (6-26); Blood Urea Nitrogen 15 mg/dL (8-26); Carbon Dioxide 30 mEq/L (19-29); Chloride 92 mEq/L (98-109); Glucose 104 mg/dL (70-99); Lactate Dehydrogenase 182 Units/L (159-327); Osmolality,Calculated 275 (280-300); Potassium 3.6 mEq/L (3.5-4.5); Sodium 132 mEq/L (136-145); eGFR For African Americans > 60 (> 60); eGFR For Non-African Americans > 60 (> 60)
[2017-02-23 05:37] LABS: Albumin 2.6 g/dL (3.5-5.0)
[2017-02-23] MEDS: Cefepime HCl 1,000 MG in D5% in Water (Mini-Bag+) 100 ML IVPB SCH (05:57)
--- NOTE | 2017-02-23 07:01 | Pulmonology Progress Note ---
Date of Encounter: 02/23/17 Time of Encounter: 07:01 Assessment and Plan (1) Pleural effusion Current Visit: Yes Status: Acute 76-year-old gentleman with history of COPD and esophageal cancer undergoing chemoradiation presenting with bilateral pleural effusions status post placement of small bore chest during on right side yesterday Chest x-ray was notable for small apical pneumothorax after placement of chest tube no air leak when I examined the patient today and he is comfortable I suspect if anything this is related to pneumothorax ex vacuo. He has drained approximately 1800 mL over last 24 hours initial fluid analysis showed exudative neutrophil predominant process consistent with parapneumonic effusion He is being covered with antimicrobials presently and will continue this for 7 days likely could be transitioned to Augmentin or respiratory fluoroquinolone by mouth to complete coverage Recommend noncontrasted CT CT scan of the chest today to follow-up on drainage and chest tube placement can also evaluate if there is any significant residual pneumothorax as well as underlying parenchymal changes after reexpansion of the lung He does have an elevated BNP and elevated the discretion of the primary medicine services to adjust diuretic regimen as needed Final cytology pending if positive for malignancy although seeming less likely based upon initial fluid analysis may be a candidate for Pleurx catheter down the line if reaccumulation of pleural fluid is rapid. (2) Pneumonia involving right lung Current Visit: No Status: Acute Qualifiers: Pneumonia type: due to unspecified organism Lung location: unspecified part of lung Qualified Code(s): J18.9 - Pneumonia, unspecified organism (3) Esophageal cancer Current Visit: No Status: Chronic Qualifiers: Malignant neoplasm of esophagus location: lower third Qualified Code(s): C15.5 - Malignant neoplasm of lower third of esophagus Subjective Principal diagnosis: Pleural effusion Interval history: Patient did well overnight he is not requiring any supplemental oxygen he says that breathing is not painful or difficult is not experiencing any significant pain associated with smallbore chest tube placement yesterday. Objective PUL Vital signs: Last Vital Signs Temp 98.1 F 02/23/17 02:56 Pulse 81 02/23/17 02:56 Resp 15 02/23/17 02:56 BP 152/80 02/23/17 02:56 Pulse Ox 96 02/23/17 02:56 General appearance: no acute distress, other (He is thin and frail appearing) Eyes: nonicteric Effort: normal Auscultation: bilateral: diminished breath sounds Cardiovascular: regular rate and rhythm Gastrointestinal: normoactive bowel sounds, non-tender Extremities: no edema Results - Laboratory Findings CBC and BMP: 02/23/17 04:00 02/23/17 04:00 PT/INR, D-dimer PT 14.5 Seconds (9.4-12.1) H 02/21/17 03:59 D-Dimer 1181 ng/mLFEU (0-500) H 02/20/17 11:20 Abnormal lab findings: Abnormal lab results RBC 3.26 M/mcL (4.19-5.50) L 02/23/17 04:00 Hgb 9.7 g/dL (12.9-16.9) L 02/23/17 04:00 Hct 29.8 % (37.5-50.1) L 02/23/17 04:00 RDW 16.8 % (11.5-14.5) H 02/23/17 04:00 PT 14.5 Seconds (9.4-12.1) H 02/21/17 03:59 D-Dimer 1181 ng/mLFEU (0-500) H 02/20/17 11:20 Sodium 132 mEq/L (136-145) L 02/23/17 04:00 Chloride 92 mEq/L (98-109) L 02/23/17 04:00 Carbon Dioxide 30 mEq/L (19-29) H 02/23/17 04:00 Creatinine 0.62 mg/dL (0.72-1.25) L 02/23/17 04:00 Glucose 104 mg/dL (70-99) H 02/23/17 04:00 Calculated Osmolality 275 (280-300) L 02/23/17 04:00 B-Natriuretic Peptide 776 pg/mL (0-100) H 02/20/17 11:20 Albumin 2.6 g/dL (3.5-5.0) L 02/23/17 04:00 Pleural Appearance Hazy (Clear) A 02/22/17 11:30 Pleural Tot Nuc Cell 4741 TNC/mcL (0-1000) H 02/22/17 11:30 - Microbiology Findings Microbiology Findings: Microbiology, Last 48 Hours 02/22/17 11:30 Body Fluid Culture - Preliminary Pericardial Fluid - Diagnostic Findings Chest x-ray: report reviewed, image reviewed - Clinical Findings Intake & Output: Intake & Output 02/22/17 02/22/17 02/23/17 15:59 23:59 07:59 Intake Total 160 / 160 100 / 100 Output Total 1680 / 1680 940 / 940 1100 / 1100 Balance -1520 / -1520 -840 / -840 -1100 / -1100 Weight 57.1 kg Consult Discharge Plan - Plan Referrals: [facility] [Primary Care Provider] -
[2017-02-23] MEDS: Finasteride 5 MG TABLET PO SCH (07:31)
[2017-02-23] MEDS: Furosemide 40 MG/4 ML VIAL IVP SCH ×2 (07:31→17:13)
[2017-02-23] MEDS: *HR* OxyCODONE Immed Rel 5 MG TABLET PO PRN ×2 (10:08→20:16)
[2017-02-23] MEDS: Budesonide/Formoterol 160/4.5 MDI IH SCH ×2 (10:17→21:02)
[2017-02-23] MEDS: *HR* FentaNYL PATCH 25 MCG PATCH TD SCH (15:31)
[2017-02-23] MEDS: *HR* FentaNYL PATCH 12 MCG PATCH TD SCH (15:31)
--- NOTE | 2017-02-23 16:51 | Internal Med Progress Note ---
Date of Encounter: 02/23/17 Time of Encounter: 10:00 - Assessment and plan (1) Pleural effusion Current Visit: Yes Status: Acute Assessment and plan: exudate, possible parapneumonic effusion, continue antibiotics, pulmonary following pneumothorax noted in ct today, will continue with chest tube and re check a CXR tomorrow in am. D/W patient. (2) COPD (chronic obstructive pulmonary disease) Current Visit: Yes Status: Chronic Assessment and plan: not in exacerbation now. Qualifiers: COPD type: unspecified COPD Qualified Code(s): J44.9 - Chronic obstructive pulmonary disease, unspecified (3) Atrial fibrillation with RVR Current Visit: No Status: Acute Assessment and plan: Likely secondary to bilateral pleural effusions Continue metoprolol controlled ventricular response. (4) Pneumonia Current Visit: No Status: Acute Qualifiers: Pneumonia type: aspiration pneumonia Aspiration pneumonia type: due to regurgitated food Laterality: right Lung location: middle lobe of lung Qualified Code(s): J69.0 - Pneumonitis due to inhalation of food and vomit (5) Esophageal cancer Current Visit: No Status: Chronic Assessment and plan: Continue treatment as outpatient Qualifiers: Malignant neoplasm of esophagus location: lower third Qualified Code(s): C15.5 - Malignant neoplasm of lower third of esophagus - Subjective Interval history: 1st encounter with the patient, denies fever, feels better today, no shortness of breath during this encounter. chest tube placed. - Constitutional Vitals: Temp Pulse Resp BP Pulse Ox 97.6 F 94 16 114/73 96 02/23/17 14:55 02/23/17 14:55 02/23/17 14:55 02/23/17 14:55 02/23/17 14:55 General appearance: Present: cachectic, A&O X 3 Exam: right sided chest tube placed. - Head Head exam: Present: atraumatic, normocephalic - Eye Eye exam: Present: PERRL, conjuntiva pink, sclera anicteric Pupils: Present: PERRL - Neck Neck exam general surgery: Present: supple, trachea midline. Absent: lymphadenopathy - Respiratory Respiratory exam: Present: CTAB. Absent: accessory muscle use, rales, rhonchi, wheezes Additional comments: dimishied breath oskar dsin right base. chest tube placed. - Cardiovascular Cardiovascular exam: Present: RRR, +S1, +S2. Absent: diastolic murmur, gallop, rubs, systolic murmur - GI/Abdominal GI/Abdominal exam: Present: normal bowel sounds, soft, no peritoneal signs. Absent: distended, tenderness - Extremities Exam Extremities exam: Present: warm, radial pulses palpable and symetrical. Absent : calf tenderness, cyanotic, pedal edema - Neurological Exam Neurological exam: Present: CN II-XII intact, oriented X3, no focal deficits. Absent: pronater drift, facial droop, speech deficit - Skin Skin exam: Present: dry, intact Internal Medicine: Result - Labs CBC & Chem 7: 02/23/17 04:00 02/23/17 04:00 Labs: Short CBC 02/23/17 Range/Units 04:00 WBC 7.1 (4.3-11.1) K/mcL Hgb 9.7 L (12.9-16.9) g/dL Hct 29.8 L (37.5-50.1) % Plt Count 265 (140-400) K/mcL BMP 02/23/17 04:00 Sodium 132 L Potassium 3.6 Chloride 92 L Carbon Dioxide 30 H BUN 15 Creatinine 0.62 L Glucose 104 H Calcium 9.0 Liver Function 02/23/17 Range/Units 04:00 Albumin 2.6 L (3.5-5.0) g/dL - ABG Interpretation ABG results: PT/INR, D-dimer PT 14.5 Seconds (9.4-12.1) H 02/21/17 03:59 D-Dimer 1181 ng/mLFEU (0-500) H 02/20/17 11:20 - Impressions Impressions Chest CT 02/23/17 08:00 IMPRESSION: Small to moderate-sized right pneumothorax with associated right pleural catheter. The right pleural effusion has resolved. Stable moderate-sized left pleural effusion. Several scattered pulmonary nodules within both lungs present on previous PET-CT. Continued follow-up examination is suggested. The lesions appear to be largely stable since previous PET-CT of 05/08/2016, given differences in technique. Stable pulmonary arterial enlargement compatible with pulmonary arterial hypertension. Stable left adrenal mass likely representing a benign adenoma measuring 2.3 x 1.7 cm. The lesion has been stable since 08/14/2015. Partial visualization of sclerotic changes within the C6 and C7 vertebral bodies. D/ / 02/23/2017 09:11:08 Karlo Tavares MD / earnold Interpreting Provider: Karlo Tavares MD Consult Discharge Plan - Plan [facility]errals: [facility] [Primary Care Provider] - (Patient is a [place] [facility] [employer] PCP and will follow up with patient once he is discharged. Please just call or have patient call the [facility] at discharge)
[2017-02-23] MEDS ORDERED: Levofloxacin 750 MG/150 ML 750 MG/150 ML BAG IVPB SCH (20:00)
[2017-02-24 04:46] LABS: Basophils % 0.2 %; Eosinophils % 0.6 %; Hematocrit 29.8 % (37.5-50.1); Hemoglobin 9.8 g/dL (12.9-16.9); Immature Granulocytes % 0.2 % (0-4); Lymphocytes # 0.5 K/mcL (0.6-4.6); Lymphocytes % 7.5 %; Mean Corpuscular HGB Conc 32.9 g/dL (31.6-35.5); Mean Corpuscular Hemoglobin 29.8 pg (28.0-33.3); Mean Corpuscular Volume 90.6 fL (83.0-100.0); Monocytes # 0.8 K/mcL (0.0-1.3); Monocytes % 12.5 %; Neutrophils # 5.3 K/mcL (1.6-8.9); Platelet Count 256 K/mcL (140-400); Red Blood Count 3.29 M/mcL (4.19-5.50); Red Cell Distribution Width 16.4 % (11.5-14.5)
[2017-02-24 05:02] LABS: BUN/Creatinine Ratio 26 (6-26); Blood Urea Nitrogen 14 mg/dL (8-26); Calcium 8.7 mg/dL (8.6-10.8); Carbon Dioxide 33 mEq/L (19-29); Chloride 90 mEq/L (98-109); Glucose 101 mg/dL (70-99); Magnesium 1.5 mg/dL (1.6-2.6); Osmolality,Calculated 273 (280-300); Potassium 2.9 mEq/L (3.5-4.5); Sodium 131 mEq/L (136-145); eGFR For African Americans > 60 (> 60); eGFR For Non-African Americans > 60 (> 60)
--- NOTE | 2017-02-24 07:01 | Pulmonology Progress Note ---
Date of Encounter: 02/24/17 Time of Encounter: 07:01 Assessment and Plan (1) Pleural effusion Current Visit: Yes Status: Acute 76-year-old gentleman with history of COPD and esophageal cancer undergoing chemoradiation presenting with bilateral pleural effusions status post placement of small bore chest drain I placed a chest tube to suction overnight chest x-ray this morning showed no change and pneumothorax clinically patient is quite stable and there is no air leak and chest tube atrium today. I feel that this is represents pneumothorax ex vacuo with a clamp the chest tube this morning repeat the chest x-ray in a few hours but if no change clinically or radiographically would plan on pulling chest tube later in the day. Pleural fluid analysis shows a neutrophilic predominant process likely represents parapneumonic effusion and for that would continue antimicrobials for 7 days. Cytology negative for malignancy (2) Pneumonia involving right lung Current Visit: No Status: Acute Qualifiers: Pneumonia type: due to unspecified organism Lung location: unspecified part of lung Qualified Code(s): J18.9 - Pneumonia, unspecified organism (3) Esophageal cancer Current Visit: No Status: Chronic Qualifiers: Malignant neoplasm of esophagus location: lower third Qualified Code(s): C15.5 - Malignant neoplasm of lower third of esophagus Subjective Principal diagnosis: Pleural effusion Interval history: He says he did well overnight there has been no change in his respiratory status in the last 24 hours and he has not had any chest pain. He is anxious to go home Objective PUL Vital signs: Last Vital Signs Temp 97.7 F 02/24/17 03:10 Pulse 73 02/24/17 03:10 Resp 14 02/24/17 03:10 BP 153/82 02/24/17 03:10 Pulse Ox 97 02/24/17 03:10 General appearance: no acute distress ENT: oropharynx moist Auscultation: right: other (Chest tube without air leak), bilateral: clear Cardiovascular: regular rate and rhythm Gastrointestinal: non-tender Results - Laboratory Findings CBC and BMP: 02/24/17 04:04 02/24/17 04:04 PT/INR, D-dimer PT 14.5 Seconds (9.4-12.1) H 02/21/17 03:59 D-Dimer 1181 ng/mLFEU (0-500) H 02/20/17 11:20 Abnormal lab findings: Abnormal lab results RBC 3.29 M/mcL (4.19-5.50) L 02/24/17 04:04 Hgb 9.8 g/dL (12.9-16.9) L 02/24/17 04:04 Hct 29.8 % (37.5-50.1) L 02/24/17 04:04 RDW 16.4 % (11.5-14.5) H 02/24/17 04:04 Lymphocytes # 0.5 K/mcL (0.6-4.6) L 02/24/17 04:04 PT 14.5 Seconds (9.4-12.1) H 02/21/17 03:59 D-Dimer 1181 ng/mLFEU (0-500) H 02/20/17 11:20 Sodium 131 mEq/L (136-145) L 02/24/17 04:04 Potassium 2.9 mEq/L (3.5-4.5) L 02/24/17 04:04 Chloride 90 mEq/L (98-109) L 02/24/17 04:04 Carbon Dioxide 33 mEq/L (19-29) H 02/24/17 04:04 Creatinine 0.54 mg/dL (0.72-1.25) L 02/24/17 04:04 Glucose 101 mg/dL (70-99) H 02/24/17 04:04 Calculated Osmolality 273 (280-300) L 02/24/17 04:04 Magnesium 1.5 mg/dL (1.6-2.6) L 02/24/17 04:04 B-Natriuretic Peptide 1176 pg/mL (0-100) H 02/24/17 04:04 Albumin 2.6 g/dL (3.5-5.0) L 02/23/17 04:00 Pleural Appearance Hazy (Clear) A 02/22/17 11:30 Pleural Tot Nuc Cell 4741 TNC/mcL (0-1000) H 02/22/17 11:30 - Microbiology Findings Microbiology Findings: Microbiology, Last 48 Hours 02/22/17 11:30 Body Fluid Culture - Preliminary Pericardial Fluid - Clinical Findings Intake & Output: Intake & Output 02/23/17 02/23/17 02/24/17 15:59 23:59 07:59 Intake Total 60 / 60 60 / 60 Output Total 20 / 20 70 / 70 60 / 60 Balance 40 / 40 -10 / - -60 Weight 57.5 kg Consult Discharge Plan - Plan [facility]errals: [facility] [Primary Care Provider] - (Patient is a [place] [employer] PCP and will follow up with patient once he is discharged. Please just call or have [facility] call the [facility] at [facility])
[2017-02-24] MEDS: Finasteride 5 MG TABLET PO SCH (08:09)
[2017-02-24] MEDS: *HR* OxyCODONE Immed Rel 5 MG TABLET PO PRN ×2 (08:09→18:22)
[2017-02-24] MEDS: Furosemide 40 MG/4 ML VIAL IVP SCH (08:10)
[2017-02-24] MEDS: Magnesium Sulfate 2 GM in D5% in Water 100 ML IVPB SCH ×2 (08:46→12:12)
[2017-02-24] MEDS ORDERED: Magnesium Oxide 400 MG TABLET PO SCH (09:00)
[2017-02-24] MEDS: Budesonide/Formoterol 160/4.5 MDI IH SCH (09:57)
[2017-02-24] MEDS ORDERED: Lactobacillus 1 EACH CAP.SPRINK PO SCH (14:30)
--- NOTE | 2017-02-24 15:06 | Event Note ---
Date of Encounter: 02/24/17 Time of Encounter: 15:03 Chest today been clamped since morning without any change in pneumothorax 6 vacuo patient very comfortable. Chest tube was removed at bedside after 2% chlorhexidine was used to clean the area and new petroleum gauze was placed over the chest tube site along with a 4 x 4 The anchoring surture was cut and the patient was asked to hum during this time and the proximal portion of pig tail drain chest tube was cut with scissors while maintaining finger clamp over the distal part chest tube and was removed without difficulty. A Tegaderm was placed over the area No immediate complications
[2017-02-24 15:07] VITALS: BP 165/71
--- NOTE | 2017-02-24 18:21 | Discharge Summary ---
Date of Encounter: 02/24/17 Time of Encounter: 18:19 - Discharge Diagnosis (1) Pleural effusion Priority: Primary Status: Acute (2) COPD (chronic obstructive pulmonary disease) Priority: Secondary Status: Chronic Qualifiers: COPD type: unspecified COPD Qualified Code(s): J44.9 - Chronic obstructive pulmonary disease, unspecified (3) Atrial fibrillation with RVR Priority: Secondary Status: Acute (4) Pneumonia Priority: Secondary Status: Acute Qualifiers: Pneumonia type: aspiration pneumonia Aspiration pneumonia type: due to regurgitated food Laterality: right Lung location: middle lobe of lung Qualified Code(s): J69.0 - Pneumonitis due to inhalation of food and vomit (5) Esophageal cancer Priority: Secondary Status: Chronic Qualifiers: Malignant neoplasm of esophagus location: lower third Qualified Code(s): C15.5 - Malignant neoplasm of lower third of esophagus - Discharge Medications Prescriptions: Levofloxacin [Levaquin] 750 mg PO DAILY #4 tablet Home Medications: Albuterol Sulfate [Albuterol Inhaler] 2 puff IH Q6HR PRN 04/29/16 [History] Magic Mouthwash [Magic Mouthwash BLM] 10 ml PO Q4H PRN 08/03/16 [History] Lanolin/Mineral Oil [Eucerin Original Lotion] 1 appl TP DAILY 08/06/16 [History] Loperamide [Imodium] 2 mg PO AD PRN 08/06/16 [History] Mag Hydrox/Al Hydrox/Simeth [Maalox] 20 ml PO TID PRN 08/06/16 [History] Propylene Glycol/Peg 400 [Kro Lubricating Rlf 0.3-0.4%] 1 drop OP QID 08/06/16 [ History] Nicotine Patch [Nicoderm] 14 mg TD DAILY 12/31/16 [History] Fludrocortisone Acetate [Florinef] 0.1 mg PO DAILY 01/19/17 [History] Hydrocortisone 2.5% CREAM [Cortaid] 1 appl TP TID PRN 01/19/17 [History] Lactose-Reduced Food/Fiber [Isosource 1.5 Oscar Liquid] 250 ml GTUBE 5XD 01/19/17 [History] Lansoprazole [Prevacid] 30 mg PO DAILY 01/19/17 [History] Ondansetron HCl 4 mg PO Q6H PRN 01/19/17 [History] Oxycodone HCl [Oxaydo] 5 mg PO Q8H PRN 01/19/17 [History] Sucralfate [Carafate] 1 gm GTUBE QID 01/19/17 [History] FentaNYL PATCH [Duragesic] 12 mcg TD Q72H #10 patch.td72 02/09/17 [Rx] FentaNYL PATCH [Duragesic] 25 mcg TD Q72H #10 patch.td72 02/09/17 [Rx] Budesonide/Formoterol 160/4.5 [Symbicort 160/4.5] 1 puff IH BID 02/20/17 [ History] Diphenhydramine HCl [Nighttime Sleep Aid] 50 mg PO BID PRN 02/20/17 [History] Docusate [Colace] 100 mg PO BID 02/20/17 [History] Lactobacillus [Culturelle] 1 cap PO TID 02/20/17 [History] Levalbuterol HCl [Xopenex Neb] 1.25 mg IH Q4H PRN 02/20/17 [History] Levalbuterol [Xopenex INH] 1 puff IH Q6H PRN 02/20/17 [History] Nicotine [Nicotine Patch] 7 mg TD DAILY 02/20/17 [History] Polyethylene Glycol 3350 [Smoothlax] 17 gm PO DAILY 02/20/17 [History] Prochlorperazine Maleate 10 mg PO Q6H PRN 02/20/17 [History] Sodium Chloride IRRigation [0.9% Sodium Chl For Irrigation 250 Ml Bottle] 20 ml GTUBE BID 02/20/17 [History] Tamsulosin [Flomax] 0.4 mg PO HS 02/20/17 [History] Levofloxacin [Levaquin] 750 mg PO DAILY #4 tablet 02/24/17 [Rx] Allergies/Adverse Reactions: Allergies chlorhexidine Adverse Reaction (Mild, Verified 02/22/17 05:54) Itching Procedures/tests Complete & Pending: Procedures Performed prior 72 hours Category Date Time Status CT chest wo con [CT] Routine Cat Scan 02/23/17 08:00 Completed IR us guide needle place [IR] Routine IR 02/22/17 Completed Date of admission: 02/20/17 13:44 [facility] care physician: [facility] Consults: 02/20/17 15:06 Consult to Nurse Navigator [CONS] Routine Comment: 02/20/17 15:13 Consult to Pulmonology [CONS] Routine Consulting Provider: [facility] Светлана Reason for Consult: bilateral large pleural effusions/thoracentesis Call Completed: No 02/21/17 14:52 Consult to Interventional Radiology [CONS] Routine Consulting Provider: Radiology Interventional Cols Reason for Consult: Chest tube /diagnostic and therapeutic thoracentesis thick pleural effusions not able to be drained by Dr Gonzalez Call Completed: No Discharging clinician: Obed Hoyt Anticipated date of discharge: 02/24/17 - Patient Status Disposition: Home Health Service Condition: Good Functional capacity at discharge: uses cane/walker Overall status at discharge: patient is back to baseline - Discharge Instructions Follow Up With: [facility],PCP [Primary Care Provider] - 03/09/17 10:15 am (Patient is a [place] [facility] [employer] PCP and will follow up with patient once he is discharged. Please just call or [facility]) - Diet and Activity Activity: increase activity as tolerated Diet: advance to your usual diet Interval History: Mr. Cantu is a 76 year old male with a past medical history of esophageal cancer on chemotherapy, hypertension, COPD not oxygen dependent, systolic CHF who was transferred from [facility] due to concerns of atrial fibrillation with rapid ventricular response. Patient says that his legs have been more swollen for the past few days and has been complaining of respiratory distress for the past few weeks but got worse earlier today at 4 AM. She has been having a dry cough. CT angiogram of the chest shows a very large right pleural effusion and a large left pleural effusion, pneumonia cannot be ruled out. Potassium is 3.4 sodium is 132 BNP 776 d-dimer is 1181. There is no evidence of pulmonary emboli. His heart rate was in the 130s, blood pressure is 163/90. Patient is feeling still very short of breath. Hospital course: Mr. Cantu is a 76 year old male. He has history of atrial fibrillation, not on anticoagulation. Continue with home medications. 76-year-old gentleman with history of COPD and esophageal cancer undergoing chemoradiation presenting with bilateral pleural effusions status post placement of small bore chest drain. Chest today been clamped since morning without any change in pneumothorax 6 vacuo patient very comfortable. Chest tube was removed at bedside after 2% chlorhexidine was used to clean the area and new petroleum gauze was placed over the chest tube site along with a 4 x 4 The anchoring surture was cut and the patient was asked to hum during this time and the proximal portion of pig tail drain chest tube was cut with scissors while maintaining finger clamp over the distal part chest tube and was removed without difficulty. A Tegaderm was placed over the area. No immediate complications. The patient was monitored for 3 hours after one of [place], no drop in oxygen saturation, stable, non- tachycardic, no hypoxemic. The patient will be discharged home today, he will complete treatment for pneumonia with by mouth Levaquin. Prescription given. Patient should follow up with his primary care physician, pulmonology, and the cancer center. Plan of care was explained to the patient in detail, he expressed understanding. All his questions were answered. - Time Spent with Patient Total time spent providing and/or coordinating discharge services: - Constitutional Vitals: Temp Pulse Resp BP Pulse Ox 97.4 F L 82 14 165/71 100 02/24/17 15:03 02/24/17 15:03 02/24/17 15:03 02/24/17 15:03 02/24/17 15:03 General appearance: Present: cachectic, A&O X 3 - Head Head exam: Present: atraumatic, normocephalic - Eye Eye exam: Present: PERRL, conjuntiva pink, sclera anicteric Pupils: Present: PERRL - Neck Neck exam general surgery: Present: supple, trachea midline. Absent: lymphadenopathy - Respiratory Respiratory exam: Present: CTAB. Absent: accessory muscle use, rales, rhonchi, wheezes - Cardiovascular Cardiovascular exam: Present: RRR, +S1, +S2. Absent: diastolic murmur, gallop, rubs, systolic murmur - GI/Abdominal GI/Abdominal exam: Present: normal bowel sounds, soft, no peritoneal signs. Absent: distended, tenderness - Extremities Exam Extremities exam: Present: warm, radial pulses palpable and symetrical. Absent : calf tenderness, cyanotic, pedal edema - Neurological Exam Neurological exam: Present: CN II-XII intact, oriented X3, no focal deficits. Absent: pronater drift, facial droop, speech deficit - Skin Skin exam: Present: dry, intact
[2017-02-24] MEDS ORDERED: levoFLOXacin 500 MG TABLET PO SCH (20:00)
== END 2017-02-24 18:55 | disposition home health service (06) | DRG 186 ==
LOC: EMEROO 10:07 → 2ANU 13:44 → SUATTDRO 13:44 → 2ANU 14:03
PROVIDERS: ADMIT Internal Medicine; ATTEND Internal Medicine
PROC: IRDRAIN (2017-02-22 14:00)

== ENCOUNTER 2017-03-18 12:16 | Inpatient (IN) ==
--- NOTE | 2017-03-18 12:29 | Emergency Department Note ---
Disposition Clinical Impression: Metastatic cancer, Adrenal mass, Pleural effusion, Pneumothorax, Abdominal pain , Frail elderly, Anemia, Bony metastasis, Esophageal cancer, Atrial fibrillation , Atrial fibrillation with RVR, Hyperkalemia, HTN (hypertension), Cancer related pain, COPD (chronic obstructive pulmonary disease), HLD (hyperlipidemia) Disposition: Admitted As Inpatient [facility] - General Adult HPI - General Chief complaint: ED Abdominal Pain Stated complaint: PEG tube problems Time Seen by Provider: 03/18/17 12:28 Source: patient Limitations: no limitations - History of Present Illness HPI Narrative: 76-year-old male reports emergency department complaining of a PEG tube malfunction. He has a history of esophageal malignancy. The patient went to the MD and was concerned that fluid was leaking around his PEG tube and that none of his PEG tube feeds were remaining in his stomach. The patient states this tube works fine and that feeds will go through it, but there is leaking around the tube, he states all of his feeds come out around the tube. The patient has had no vomiting, he has had chronic diarrhea. No bloody stool he is not anticoagulated. There is no history of chest pain or acute shortness of breath. No fevers back pain or urinary problems. The patient reports he has not had adequate nutrition, there was concern [facility] the [facility] staff regarding his [facility] tube status and nutrition status so they had the patient sent in to the ED for evaluation. There is no history of confusion or any difficulty walking talking hearing seeing or speaking. No syncope or any other complaint or concern reported or noted. Pain Scale: 6 - Related Data Home Medications Medication Instructions Recorded Confirmed Magic Mouthwash [Magic Mouthwash 5 ml PO Q4H PRN 08/03/16 03/18/17 BLM] Lanolin/Mineral Oil [Eucerin 1 appl TP DAILY 08/06/16 03/18/17 Original Lotion] Loperamide [Imodium] 2 mg PO PER PKG DI PRN 08/06/16 03/18/17 Mag Hydrox/Al Hydrox/Simeth 10 ml PO TID PRN 08/06/16 03/18/17 [Maalox] Propylene Glycol/Peg 400 [Kro 1 drop BOTH EYES QID 08/06/16 03/18/17 Lubricating Rlf 0.3-0.4%] Nicotine Patch [Nicoderm] 14 mg TD DAILY 12/31/16 03/18/17 Fludrocortisone Acetate [Florinef] 0.1 mg PO DAILY 01/19/17 03/18/17 Hydrocortisone 2.5% CREAM [Cortaid] 1 appl RC TID PRN 01/19/17 03/18/17 Lactose-Reduced Food/Fiber 500 ml GTUBE 0700,1200 01/19/17 03/18/17 [Isosource 1.5 Oscar Liquid] Lansoprazole [Prevacid] 30 mg PO DAILY 01/19/17 03/18/17 Ondansetron HCl 4 mg PO Q6H PRN 01/19/17 03/18/17 Sucralfate [Carafate] 1 gm PO ACHS 01/19/17 03/18/17 Budesonide/Formoterol 160/4.5 1 puff IH BID 02/20/17 03/18/17 [Symbicort 160/4.5] Diphenhydramine HCl [Nighttime 50 mg PO BID PRN 02/20/17 03/18/17 Sleep Aid] Docusate [Colace] 100 mg PO BID 02/20/17 03/18/17 Lactobacillus [Culturelle] 1 cap PO TID 02/20/17 03/18/17 Levalbuterol HCl [Xopenex Neb] 1.25 mg IH Q4H PRN 02/20/17 03/18/17 Levalbuterol [Xopenex INH] 1 puff IH Q6H PRN 02/20/17 03/18/17 Polyethylene Glycol 3350 17 gm PO DAILY 02/20/17 03/18/17 [Smoothlax] Sodium Chloride IRRigation [0.9% 20 ml GTUBE BID 02/20/17 03/18/17 Sodium Chl For Irrigation 250 Ml Bottle] Tamsulosin [Flomax] 0.4 mg PO HS 02/20/17 03/18/17 Ipratropium Neb [Atrovent Neb] 0.5 mg IH Q4H PRN 03/18/17 03/18/17 Lactose-Reduced Food [Ensure Plus] 1 bottle PO 5-6XD 03/18/17 03/18/17 Lactose-Reduced Food/Fiber 250 ml GTUBE 1700 03/18/17 03/18/17 [Isosource 1.5 Oscar Liquid] Lidocaine Patch [Lidoderm 5% patch] 1 each TP DAILY 03/18/17 03/18/17 Oxycodone HCl 10 mg PO Q8H PRN 03/18/17 03/18/17 Prochlorperazine Maleate 10 mg PO Q6HR PRN 03/18/17 03/18/17 [Compazine] Water for Irrigation (sterile) 30 ml IR AD 03/18/17 03/18/17 [Water for irrigation (sterile)] Allergies Allergy/AdvReac Type Severity Reaction Status Date / Time chlorhexidine AdvReac Mild Itching Verified 03/18/17 12:23 hydrochlorothiazide AdvReac See Verified 03/18/17 19:43 Comments All systems ED: reviewed and negative except as stated. Past Medical History - Past Medical History Medical history: Reports: atrial fibrillation, cancer, CHF, COPD, GERD, hyperlipidemia, hypertension, malignancy, other Surgical history: Reports: cataract, other (PEG tube) Psychiatric history: Reports: no psych history - Social History Smoking Status: Former smoker Smokeless Tobacco Status: No Alcohol use: Reports: none Drug use: Reports: none Physical Exam - General Limitations: no limitations General appearance: alert, in no apparent distress - Head Head exam: atraumatic, normocephalic, normal inspection - Eye Eye exam: Present: normal appearance, PERRL, EOMI - ENT ENT exam: normal exam, normal oropharynx, mucous membranes moist, TM's normal bilaterally, normal external ear exam - Neck Neck exam: Present: normal inspection, full ROM, trachea midline - Chest Chest inspection: Present: symmetric chest wall rise. Absent: tenderness - Respiratory Respiratory exam: Present: normal lung sounds bilaterally. Absent: respiratory distress, wheezes, stridor, accessory muscle use, prolonged expiratory phase - Cardiovascular Cardiovascular exam: Present: regular rate. Absent: systolic murmur - Abdominal Exam Abdominal exam: Present: soft, tenderness, other (The patient has a G-tube in place, no leakage noted. Reddening around the site, no dehiscence of the skin.) . Absent: distention, guarding, rebound, rigidity, normal bowel sounds, trauma , tenderness at McBurney's Point, ascites, pulsatile mass Abdominal tenderness: Present: epigastrium, mild - Extremities Exam Extremities exam: Present: normal inspection, full ROM, normal capillary refill. Absent: tenderness, pedal edema, joint swelling, calf tenderness - Expanded Lower Extremity Exam Lower leg exam: Absent: Homans' sign Neurovascular/Tendon exam: Present: normal capillary refill. Absent: motor deficit, sensory deficit, tendon deficit, extremity cold to touch, pallor - Back Exam Back exam: Present: normal inspection, full ROM. Absent: tenderness, CVA tenderness (R), CVA tenderness (L), vertebral tenderness - Neurological Exam Neurological exam: Present: alert, oriented X3, CN II-XII intact. Absent: motor sensory deficit - Psychiatric Psychiatric exam: Present: normal affect, normal mood - Skin Skin exam: Present: warm, dry, intact, normal color. Absent: rash, cyanosis, diaphoresis, erythema, pallor, mottled Course Vital Signs Temperature 97.9 F 03/18/17 12:19 Pulse Rate 96 03/18/17 12:19 Respiratory Rate 18 03/18/17 12:19 Blood Pressure 139/78 03/18/17 12:19 O2 Sat by Pulse Oximetry 98 03/18/17 12:19 Temperature 97.9 F 03/18/17 12:19 Pulse Rate 103 03/18/17 18:29 Respiratory Rate 18 03/18/17 18:29 Blood Pressure 137/70 03/18/17 18:29 O2 Sat by Pulse Oximetry 98 03/18/17 18:29 Oxygen Delivery Oxygen Delivery Room Air Medical Decision Making - [facility] Narrative Medical decision making narrative: The patient is elderly, frail, has esophageal cancer, and is fearful for malnutrition, there was concern regarding PEG tube abnormality but the PEG tube appears to be in place. There is no evidence of leaking of fluid around the PEG tube nichelle PEG tube dysfunction at this time. The patient appears to bilateral pleural effusions with metastatic bony disease including an expanding adrenal mass. The patient has a low-grade pneumothorax which will not require a chest tube at this time. Based on his age, known malignancy with apparent metastasis, atrial fibrillation with RVR, pneumothorax, and bilateral pleural effusions, I thought it would be appropriate to admit the patient for further evaluation. The patient's pneumothorax is so small, observation seems to be the appropriate course. I do not think the patient would benefit from a chest tube at this time. I discussed the case with the hospitalist mobile application tester who has accepted the patient to their care. - Lab Data Lab results reviewed: Yes I reviewed the patient's lab results. Result diagrams: 03/18/17 13:06 03/18/17 13:06 Lab Results 03/18/17 03/18/17 03/18/17 Range/Units 13:06 13:06 13:06 WBC 6.0 (4.3-11.1) K/mcL RBC 3.50 L (4.19-5.50) M/mcL Hgb 10.5 L (12.9-16.9) g/dL Hct 32.0 L (37.5-50.1) % MCV 91.4 (83.0-100.0) fL MCH 30.0 (28.0-33.3) pg MCHC 32.8 (31.6-35.5) g/dL RDW 13.7 (11.5-14.5) % Plt Count 224 (140-400) K/mcL MPV 9.2 L (9.4-12.4) fL Immature Gran % 0.3 (0-4) % Seg Neutrophils % 82.5 % Lymphocytes % 5.4 % Monocytes % 10.9 % Eosinophils % 0.7 % Basophils % 0.2 % Neutrophils # 4.9 (1.6-8.9) K/mcL Lymphocytes # 0.3 L (0.6-4.6) K/mcL Monocytes # 0.7 (0.0-1.3) K/mcL Eosinophils # 0.0 (0.0-0.6) K/mcL Basophils # 0.0 (0.0-0.2) K/mcL PT (9.4-12.1) Seconds INR APTT (26.0-36.0) Seconds Sodium 128 L (136-145) mEq/L Potassium 4.6 H (3.5-4.5) mEq/L Chloride 93 L (98-109) mEq/L Carbon Dioxide 31 H (19-29) mEq/L BUN 12 (8-26) mg/dL Creatinine 0.64 L (0.72-1.25) mg/dL Est GFR ( Amer) > 60 (> 60) Est GFR (Non-Af Amer) > 60 (> 60) BUN/Creatinine Ratio 19 (6-26) Glucose 97 (70-99) mg/dL Calculated Osmolality 266 L (280-300) Lactic Acid 0.8 (0.5-2.2) mmol/L Calcium 9.9 (8.6-10.8) mg/dL Total Bilirubin 0.8 (0.2-1.2) mg/dL Direct Bilirubin 0.4 (0.0-0.5) mg/dL Indirect Bilirubin 0.4 (0.0-1.2) mg/dL AST 24 (5-34) Units/L ALT 31 (0-55) Units/L Alkaline Phosphatase 213 H (38-126) Units/L Troponin I (0-0.03) ng/mL C-Reactive Protein 84 H (Less than 5) mg/L B-Natriuretic Peptide (0-100) pg/mL Serum Total Protein 6.9 (6.0-8.3) g/dL Albumin 2.7 L (3.5-5.0) g/dL Globulin 4.2 H (2.4-3.5) g/dL Albumin/Globulin Ratio 0.6 L (1.1-2.2) Lipase < 4 L (8-78) Units/L Urine Color (Yellow) Urine Clarity (Clear) Urine pH (5.0-8.0) pH Units Ur Specific [place] (1.010-1.025) Urine Protein (Neg-Trace) mg/dL Urine Glucose (UA) (Normal) mg/dL Urine Ketones (Negative) mg/dL Urine Blood (Negative) Urine Nitrite (Negative) Urine Bilirubin (Negative) Urine Urobilinogen (Normal) mg/dL Ur Leukocyte Esterase (Negative) Urine Microscopic RBC (0-3) per hpf Urine Microscopic WBC (0-3) per hpf Ur Squamous Epith Cells (None-Few) per lpf Amorphous Sediment (Few) Urine Bacteria (None-Few) per hpf Ur Culture Indicated? (NO) 03/18/17 03/18/17 03/18/17 Range/Units 13:06 14:19 16:50 WBC (4.3-11.1) K/mcL RBC (4.19-5.50) M/mcL Hgb (12.9-16.9) g/dL Hct (37.5-50.1) % MCV (83.0-100.0) fL MCH (28.0-33.3) pg MCHC (31.6-35.5) g/dL RDW (11.5-14.5) % Plt Count (140-400) K/mcL MPV (9.4-12.4) fL Immature Gran % (0-4) % Seg Neutrophils % % Lymphocytes % % Monocytes % % Eosinophils % % Basophils % % Neutrophils # (1.6-8.9) K/mcL Lymphocytes # (0.6-4.6) K/mcL Monocytes # (0.0-1.3) K/mcL Eosinophils # (0.0-0.6) K/mcL Basophils # (0.0-0.2) K/mcL PT 13.0 H (9.4-12.1) Seconds INR 1.2 APTT 30.8 (26.0-36.0) Seconds Sodium (136-145) mEq/L Potassium (3.5-4.5) mEq/L Chloride (98-109) mEq/L Carbon Dioxide (19-29) mEq/L BUN (8-26) mg/dL Creatinine (0.72-1.25) mg/dL Est GFR ( Amer) (> 60) Est GFR (Non-Af Amer) (> 60) BUN/Creatinine Ratio (6-26) Glucose (70-99) mg/dL Calculated Osmolality (280-300) Lactic Acid (0.5-2.2) mmol/L Calcium (8.6-10.8) mg/dL Total Bilirubin (0.2-1.2) mg/dL Direct Bilirubin (0.0-0.5) mg/dL Indirect Bilirubin (0.0-1.2) mg/dL AST (5-34) Units/L ALT (0-55) Units/L Alkaline Phosphatase (38-126) Units/L Troponin I 0.02 (0-0.03) ng/mL C-Reactive Protein (Less than 5) mg/L B-Natriuretic Peptide (0-100) pg/mL Serum Total Protein (6.0-8.3) g/dL Albumin (3.5-5.0) g/dL Globulin (2.4-3.5) g/dL Albumin/Globulin Ratio (1.1-2.2) Lipase (8-78) Units/L Urine Color Yellow (Yellow) Urine Clarity Slightly Hazy (Clear) Urine pH 7.0 (5.0-8.0) pH Units Ur Specific [place] 1.020 (1.010-1.025) Urine Protein 30 H (Neg-Trace) mg/dL Urine Glucose (UA) Normal (Normal) mg/dL Urine Ketones Negative (Negative) mg/dL Urine Blood Negative (Negative) Urine Nitrite Negative (Negative) Urine Bilirubin Negative (Negative) Urine Urobilinogen Normal (Normal) mg/dL Ur Leukocyte Esterase Negative (Negative) Urine Microscopic RBC 0-3 (0-3) per hpf Urine Microscopic WBC 0-3 (0-3) per hpf Ur Squamous Epith Cells Moderate H (None-Few) per lpf Amorphous Sediment Moderate H (Few) Urine Bacteria Many H (None-Few) per hpf Ur Culture Indicated? NO (NO) 03/18/17 Range/Units 16:50 WBC (4.3-11.1) K/mcL RBC (4.19-5.50) M/mcL Hgb (12.9-16.9) g/dL Hct (37.5-50.1) % MCV (83.0-100.0) fL MCH (28.0-33.3) pg MCHC (31.6-35.5) g/dL RDW (11.5-14.5) % Plt Count (140-400) K/mcL MPV (9.4-12.4) fL Immature Gran % (0-4) % Seg Neutrophils % % Lymphocytes % % Monocytes % % Eosinophils % % Basophils % % Neutrophils # (1.6-8.9) K/mcL Lymphocytes # (0.6-4.6) K/mcL Monocytes # (0.0-1.3) K/mcL Eosinophils # (0.0-0.6) K/mcL Basophils # (0.0-0.2) K/mcL PT (9.4-12.1) Seconds INR APTT (26.0-36.0) Seconds Sodium (136-145) mEq/L Potassium (3.5-4.5) mEq/L Chloride (98-109) mEq/L Carbon Dioxide (19-29) mEq/L BUN (8-26) mg/dL Creatinine (0.72-1.25) mg/dL Est GFR ( Amer) (> 60) Est GFR (Non-Af Amer) (> 60) BUN/Creatinine Ratio (6-26) Glucose (70-99) mg/dL Calculated Osmolality (280-300) Lactic Acid (0.5-2.2) mmol/L Calcium (8.6-10.8) mg/dL Total Bilirubin (0.2-1.2) mg/dL Direct Bilirubin (0.0-0.5) mg/dL Indirect Bilirubin (0.0-1.2) mg/dL AST (5-34) Units/L ALT (0-55) Units/L Alkaline Phosphatase (38-126) Units/L Troponin I (0-0.03) ng/mL C-Reactive Protein (Less than 5) mg/L B-Natriuretic Peptide 319 H (0-100) pg/mL Serum Total Protein (6.0-8.3) g/dL Albumin (3.5-5.0) g/dL Globulin (2.4-3.5) g/dL Albumin/Globulin Ratio (1.1-2.2) Lipase (8-78) Units/L Urine Color (Yellow) Urine Clarity (Clear) Urine pH (5.0-8.0) pH Units Ur Specific [place] (1.010-1.025) Urine Protein (Neg-Trace) mg/dL Urine Glucose (UA) (Normal) mg/dL Urine Ketones (Negative) mg/dL Urine Blood (Negative) Urine Nitrite (Negative) Urine Bilirubin (Negative) Urine Urobilinogen (Normal) mg/dL Ur Leukocyte Esterase (Negative) Urine Microscopic RBC (0-3) per hpf Urine Microscopic WBC (0-3) per hpf Ur Squamous Epith Cells (None-Few) per lpf Amorphous Sediment (Few) Urine Bacteria (None-Few) per hpf Ur Culture Indicated? (NO) - Radiology Data Radiology results reviewed: Yes I reviewed the patient's radiology results.
[2017-03-18 13:17] LABS: Basophils % 0.2 %; Eosinophils % 0.7 %; Hemoglobin 10.5 g/dL (12.9-16.9); Immature Granulocytes % 0.3 % (0-4); Lymphocytes # 0.3 K/mcL (0.6-4.6); Lymphocytes % 5.4 %; Mean Corpuscular HGB Conc 32.8 g/dL (31.6-35.5); Mean Corpuscular Volume 91.4 fL (83.0-100.0); Mean Platelet Volume 9.2 fL (9.4-12.4); Monocytes # 0.7 K/mcL (0.0-1.3); Monocytes % 10.9 %; Neutrophils # 4.9 K/mcL (1.6-8.9); Platelet Count 224 K/mcL (140-400); Red Cell Distribution Width 13.7 % (11.5-14.5); Segmented Neutrophils % 82.5 %
[2017-03-18 13:23] LABS: INR 1.2
[2017-03-18 13:26] LABS: Activated Partial Thrombo Time 30.8 Seconds (26.0-36.0)
[2017-03-18 13:35] LABS: Alanine Aminotransferase 31 Units/L (0-55); Albumin 2.7 g/dL (3.5-5.0); Albumin/Globulin Ratio 0.6 (1.1-2.2); Alkaline Phosphatase 213 Units/L (38-126); Aspartate Amino Transferase 24 Units/L (5-34); BUN/Creatinine Ratio 19 (6-26); Bilirubin,Direct 0.4 mg/dL (0.0-0.5); Bilirubin,Indirect 0.4 mg/dL (0.0-1.2); Bilirubin,Total 0.8 mg/dL (0.2-1.2); Blood Urea Nitrogen 12 mg/dL (8-26); Calcium 9.9 mg/dL (8.6-10.8); Carbon Dioxide 31 mEq/L (19-29); Chloride 93 mEq/L (98-109); Globulin 4.2 g/dL (2.4-3.5); Glucose 97 mg/dL (70-99); Osmolality,Calculated 266 (280-300); Potassium 4.6 mEq/L (3.5-4.5); Sodium 128 mEq/L (136-145); Total Protein 6.9 g/dL (6.0-8.3); eGFR For African Americans > 60 (> 60); eGFR For Non-African Americans > 60 (> 60)
[2017-03-18 13:44] LABS: Lipase < 4 Units/L (8-78)
[2017-03-18 14:34] LABS: C-Reactive Protein 84 mg/L (Less than 5)
[2017-03-18 14:41] LABS: Bilirubin,Urine Negative (Negative); Blood,Urine Negative (Negative); Color,Urine Yellow (Yellow); Glucose,Urine (UA) Normal (Normal); Ketones,Urine Negative (Negative); Leukocyte Esterase,Urine Negative (Negative); Nitrite,Urine Negative (Negative); Protein,Urine 30 mg/dL (Neg-Trace); Urobilinogen,Urine Normal (Normal)
[2017-03-18 14:42] LABS: Clarity,Urine Slightly Hazy (Clear)
[2017-03-18 14:55] LABS: Amorphous Sediment,Urine Moderate (Few); Squamous Epithelial Cell,Urine Moderate per lpf (None-Few)
[2017-03-18 14:56] LABS: Bacteria,Urine Many per hpf (None-Few)
[2017-03-18 14:57] LABS: RBC,Urine 0-3 per hpf (0-3); WBC,Urine 0-3 per hpf (0-3)
[2017-03-18] MEDS ORDERED: Levofloxacin 750 MG/150 ML 750 MG/150 ML BAG IVPB ONE (16:36)
[2017-03-18] MEDS ORDERED: *HR* OxyCODONE/APAP 5/325 TABLET PO ONE (18:52)
[2017-03-19] MEDS ORDERED: *HR* OxyCODONE Immed Rel 5 MG TABLET PO PRN (00:56)
[2017-03-19] MEDS ORDERED: Ondansetron 4 MG/2 ML VIAL IVP PRN (00:58)
[2017-03-19] MEDS ORDERED: Ketorolac 30 MG/ML VIAL IVP PRN (00:58)
[2017-03-19] MEDS ORDERED: Naloxone 0.4 MG/ML INJ IVP PRN (00:58)
[2017-03-19] MEDS ORDERED: Acetaminophen 325 MG TABLET PO PRN (00:58)
--- NOTE | 2017-03-19 01:06 | Internal Med History&Physical ---
Date of Encounter: 03/19/17 Time of Encounter: 01:03 Assessment and Plan (1) Pneumothorax Current visit: Yes Status: Acute Small 4 mm right apical pneumothorax Consult pulmonary, recheck chest x-ray in the morning Omeprazole for GI prophylaxis and subcutaneous heparin for DVT prophylaxis. The patient will be admitted as inpatient. DNR CC. Time spent on this admission 40 minutes High risk of respiratory failure Qualifiers: Encounter type: sequela Qualified Code(s): S27.0XXS - Traumatic pneumothorax, sequela (2) Hyponatremia Current visit: No Status: Acute Chronic hyponatremia, monitor closely, consider fluid restriction (3) Metastatic cancer Current visit: Yes Status: Acute (4) Adrenal mass Current visit: Yes Status: Acute (5) Atrial fibrillation Current visit: Yes Status: Acute Stable, Qualifiers: Atrial fibrillation type: paroxysmal Qualified Code(s): I48.0 - Paroxysmal atrial fibrillation (6) Leaking PEG tube Current visit: No Status: Resolved No leaking evidence (7) Pleural effusion Current visit: No Status: Acute (8) Metastasis from esophageal cancer Current visit: Yes Status: Acute Metastatic esophageal cancer Consider palliative care consult Internal Medicine - H&P: HPI Chief complaint: PEG tube malfunction Admitted From: Emergency Dept History of present illness: Mr. Cantu is a 76 year old male with a past medical history of healthcare associated pneumonia, bilateral pleural effusions, metastatic esophageal cancer status post chemotherapy, hypertension, COPD not oxygen dependent, systolic CHF who was transferred from [facility] due to concerns of PEG tube malfunction. Apparently his PEG tube was leaking since yesterday. CT scan was done at the emergency room of the abdomen showing a trace anterior small pneumothorax on the right side, probably does not require a chest tube, showed moderate right sized pleural effusion, PEG tube is in the right position not leaking anymore, left adrenal metastases, left lytic ischial tuberosity lesion compatible with metastases and fracture of the left superior pubic ramus. The patient denies any pain at the moment, feels less short of breath. His sodium was found to be 128, he has History of chronic hyponatremia. During his last hospitalization he had it chest tube placed as he got stuck several times to perform a thoracentesis, but unfortunately the fluid was so thick that nothing came out and for that reason a chest tube was temporarily placed. 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), CHF ( Systolic CHF echocardiogram from July 2016 shows an ejection fraction of 40%) , COPD (Not oxygen dependent), GERD, hyperlipidemia, hypertension, malignancy, other (Chronic pain syndrome, pulmonary hypertension, pericardial effusions, gallstones, chronic pain syndrome, peripheral vascular disease, olecranon bursitis, chronic prostatitis, hyperlipidemia), bilateral pleural effusions, hyponatremia) Psychiatric history: no psych history - Past Surgical History Surgical History: cataract, other (Thoracentesis, chest tubes, PEG tube) - Social History Smoking Status: Former smoker (Quit in December, used to smoke 1 pack per day) Smokeless Tobacco Status: No Alcohol use: none Drug use: none - Family History Brother Hx Family Cancer: Yes (Esophageal cancer) Sister Hx Family Neurologic Disorders: Yes (Alzeheimer) Father Hx Family Cardiac Disorders: Yes (heart attack) - Additional Family History Additional family history: Brother with stomach cancer and esophageal cancer, sister with Alzheimer's and father with CAD Internal Medicine - H&P: Meds Magic Mouthwash [Magic Mouthwash BLM] 5 ml PO Q4H PRN 08/03/16 [History] Lanolin/Mineral Oil [Eucerin Original Lotion] 1 appl TP DAILY 08/06/16 [History] Loperamide [Imodium] 2 mg PO PER PKG DI PRN 08/06/16 [History] Mag Hydrox/Al Hydrox/Simeth [Maalox] 10 ml PO TID PRN 08/06/16 [History] Propylene Glycol/Peg 400 [Kro Lubricating Rlf 0.3-0.4%] 1 drop BOTH EYES QID [History] Nicotine Patch [Nicoderm] 14 mg TD DAILY 12/31/16 [History] Fludrocortisone Acetate [Florinef] 0.1 mg PO DAILY 01/19/17 [History] Hydrocortisone 2.5% CREAM [Cortaid] 1 appl RC TID PRN 01/19/17 [History] Lactose-Reduced Food/Fiber [Isosource 1.5 Oscar Liquid] 500 ml GTUBE 0700,1200 08/27 [History] Lansoprazole [Prevacid] 30 mg PO DAILY 01/19/17 [History] Ondansetron HCl 4 mg PO Q6H PRN 01/19/17 [History] Sucralfate [Carafate] 1 gm PO ACHS 01/19/17 [History] Budesonide/Formoterol 160/4.5 [Symbicort 160/4.5] 1 puff IH BID 02/20/17 [ History] Diphenhydramine HCl [Nighttime Sleep Aid] 50 mg PO BID PRN 02/20/17 [History] Docusate [Colace] 100 mg PO BID 02/20/17 [History] Lactobacillus [Culturelle] 1 cap PO TID 02/20/17 [History] Levalbuterol HCl [Xopenex Neb] 1.25 mg IH Q4H PRN 02/20/17 [History] Levalbuterol [Xopenex INH] 1 puff IH Q6H PRN 02/20/17 [History] Polyethylene Glycol 3350 [Smoothlax] 17 gm PO DAILY 02/20/17 [History] Sodium Chloride IRRigation [0.9% Sodium Chl For Irrigation 250 Ml Bottle] 20 ml GTUBE BID 02/20/17 [History] Tamsulosin [Flomax] 0.4 mg PO HS 02/20/17 [History] Ipratropium Neb [Atrovent Neb] 0.5 mg IH Q4H PRN 03/18/17 [History] Lactose-Reduced Food [Ensure Plus] 1 bottle PO 5-6XD 03/18/17 [History] Lactose-Reduced Food/Fiber [Isosource 1.5 Oscar Liquid] 250 ml GTUBE 1700 [History] Lidocaine Patch [Lidoderm 5% patch] 1 each TP DAILY 03/18/17 [History] Oxycodone HCl 10 mg PO Q8H PRN 03/18/17 [History] Prochlorperazine Maleate [Compazine] 10 mg PO Q6HR PRN 03/18/17 [History] Water for Irrigation (sterile) [Water for irrigation (sterile)] 30 ml IR AD 05/27 [History] Allergies chlorhexidine Adverse Reaction (Mild, Verified 03/18/17 12:23) Itching hydrochlorothiazide Adverse Reaction (Verified 03/18/17 19:43) See Comments per [facility] list All Systems PM: A 10-system review of systems was performed and is negative for pertinent findings except as documented above in the HPI. Review of systems: Denies any pain, shortness of breath. PEG tube is not leaking anymore. Other systems out of the 10 reviewed are negative - Constitutional Vitals: Temp Pulse Resp BP Pulse Ox 97.5 F L 102 16 140/88 98 03/18/17 23:14 03/18/17 23:14 03/18/17 23:14 03/18/17 23:14 03/18/17 23:14 General appearance: Present: cachectic, A&O X 3 - Head Head exam: Present: atraumatic, normocephalic - Eye Eye exam: Present: PERRL, conjuntiva pink, sclera anicteric Pupils: Present: PERRL - Neck Neck exam general surgery: Present: supple, trachea midline. Absent: lymphadenopathy - Respiratory Respiratory exam: Present: decreased breath sounds (Blunted breath sounds on the right base), CTAB. Absent: accessory muscle use, rales, rhonchi, wheezes - Cardiovascular Cardiovascular exam: Present: RRR, +S1, +S2. Absent: diastolic murmur, gallop, rubs, systolic murmur - GI/Abdominal GI/Abdominal exam: Present: normal bowel sounds, soft, no peritoneal signs. Absent: distended (PEG tube in place, no leaking), tenderness - Extremities Exam Extremities exam: Present: warm, radial pulses palpable and symetrical. Absent : calf tenderness, cyanotic, pedal edema - Neurological Exam Neurological exam: Present: CN II-XII intact, oriented X3, no focal deficits. Absent: pronater drift, facial droop, speech deficit - Skin Skin exam: Present: dry, intact Internal Med - H&P Results - Labs CBC & Chem 7: 03/18/17 13:06 03/18/17 13:06
[2017-03-19 04:50] LABS: Basophils % 0.4 %; Eosinophils # 0.1 K/mcL (0.0-0.6); Eosinophils % 2.6 %; Hematocrit 28.3 % (37.5-50.1); Hemoglobin 9.2 g/dL (12.9-16.9); Immature Granulocytes % 0.2 % (0-4); Lymphocytes # 0.4 K/mcL (0.6-4.6); Lymphocytes % 8.3 %; Mean Corpuscular HGB Conc 32.5 g/dL (31.6-35.5); Mean Corpuscular Hemoglobin 29.6 pg (28.0-33.3); Mean Platelet Volume 10.1 fL (9.4-12.4); Monocytes # 0.7 K/mcL (0.0-1.3); Monocytes % 14.7 %; Neutrophils # 3.7 K/mcL (1.6-8.9); Platelet Count 229 K/mcL (140-400); Red Blood Count 3.11 M/mcL (4.19-5.50); Red Cell Distribution Width 13.7 % (11.5-14.5); Segmented Neutrophils % 73.8 %
[2017-03-19 05:17] LABS: BUN/Creatinine Ratio 22 (6-26); Blood Urea Nitrogen 12 mg/dL (8-26); Calcium 9.4 mg/dL (8.6-10.8); Carbon Dioxide 25 mEq/L (19-29); Chloride 95 mEq/L (98-109); Glucose 72 mg/dL (70-99); Osmolality,Calculated 264 (280-300); Sodium 128 mEq/L (136-145); eGFR For African Americans > 60 (> 60); eGFR For Non-African Americans > 60 (> 60)
[2017-03-19] MEDS ORDERED: *HR* Heparin 5,000 UNIT/ML VIAL SQ SCH (06:00)
--- NOTE | 2017-03-19 06:46 | Pulmonology Consult Note ---
Date of Encounter: 03/19/17 Time of Encounter: 06:46 Assessment and Plan (1) Pneumothorax Current Visit: Yes Status: Acute This is post thoracentesis related to trapped lung advise against placement of a pleural catheter conservative management recommended Qualifiers: Qualified Code(s): J93.9 - Pneumothorax, unspecified (2) Pleural effusion Current Visit: Yes Status: Acute Has recurrent moderate to small pleural effusion does not seem to be causing a lot of symptoms at present could be considered for Pleurx catheter and outpatient basis so would need pulmonary follow-up for this (3) Leaking PEG tube Current Visit: No Status: Resolved Defer management to primary service Appreciate the consult pulmonary we will sign off please call with questions History of Present Illness Consult date: 03/19/17 Requesting physician: Karan Jorgensen Reason for consult: asthma, pleural effusion, pneumothorax Chief complaint: Leaking PEG tube History of present illness: This is a 76-year-old gentleman with past medical history of metastatic adenocarcinoma of the esophagus COPD CHF chronic hyponatremia we will set up pleural effusion. Who was admitted for evaluation of mechanical dysfunction of PEG tube as part of this evaluation CT of the abdomen was performed which was notable for a small residual pneumothorax on the right side pulmonary was consulted for further recommendations. I dip A/pleasure to see the patient a month ago for the admission that related to right-sided pleural effusion. At that time he underwent thoracentesis which was unsuccessful followed by IR guided smallbore chest tube placement for drainage of the right pleural effusion the cytology of the time was negative for malignancy postop imaging was notable for residual pneumothorax thought to be pneumothorax 6 vacuo with some component of trapped lung. Patient occasionally gets short of breath but in general has not had any complaints. 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), CHF ( Systolic CHF echocardiogram from July 2016 shows an ejection fraction of 40%) , COPD (Not oxygen dependent), GERD, hyperlipidemia, hypertension, malignancy, other (Chronic pain syndrome, pulmonary hypertension, pericardial effusions, gallstones, chronic pain syndrome, peripheral vascular disease, olecranon bursitis, chronic prostatitis, hyperlipidemia), bilateral pleural effusions, hyponatremia) Psychiatric history: no psych history - Past Surgical History Surgical History: cataract, other (Thoracentesis, chest tubes, PEG tube) - Social History Smoking Status: Former smoker (Quit in December, used to smoke 1 pack per day) Smokeless Tobacco Status: No Alcohol use: none Drug use: none - Family History Brother Hx Family Cancer: Yes (Esophageal cancer) Sister Hx Family Neurologic Disorders: Yes (Alzeheimer) Father Hx Family Cardiac Disorders: Yes (heart attack) Medications and Allergies Magic Mouthwash [Magic Mouthwash BLM] 5 ml PO Q4H PRN 08/03/16 [History] Lanolin/Mineral Oil [Eucerin Original Lotion] 1 appl TP DAILY 08/06/16 [History] Loperamide [Imodium] 2 mg PO PER PKG DI PRN 08/06/16 [History] Mag Hydrox/Al Hydrox/Simeth [Maalox] 10 ml PO TID PRN 08/06/16 [History] Propylene Glycol/Peg 400 [Kro Lubricating Rlf 0.3-0.4%] 1 drop BOTH EYES QID [History] Nicotine Patch [Nicoderm] 14 mg TD DAILY 12/31/16 [History] Fludrocortisone Acetate [Florinef] 0.1 mg PO DAILY 01/19/17 [History] Hydrocortisone 2.5% CREAM [Cortaid] 1 appl RC TID PRN 01/19/17 [History] Lactose-Reduced Food/Fiber [Isosource 1.5 Oscar Liquid] 500 ml GTUBE 0700,1200 08/27 [History] Lansoprazole [Prevacid] 30 mg PO DAILY 01/19/17 [History] Ondansetron HCl 4 mg PO Q6H PRN 01/19/17 [History] Sucralfate [Carafate] 1 gm PO ACHS 01/19/17 [History] Budesonide/Formoterol 160/4.5 [Symbicort 160/4.5] 1 puff IH BID 02/20/17 [ History] Diphenhydramine HCl [Nighttime Sleep Aid] 50 mg PO BID PRN 02/20/17 [History] Docusate [Colace] 100 mg PO BID 02/20/17 [History] Lactobacillus [Culturelle] 1 cap PO TID 02/20/17 [History] Levalbuterol HCl [Xopenex Neb] 1.25 mg IH Q4H PRN 02/20/17 [History] Levalbuterol [Xopenex INH] 1 puff IH Q6H PRN 02/20/17 [History] Polyethylene Glycol 3350 [Smoothlax] 17 gm PO DAILY 02/20/17 [History] Sodium Chloride IRRigation [0.9% Sodium Chl For Irrigation 250 Ml Bottle] 20 ml GTUBE BID 02/20/17 [History] Tamsulosin [Flomax] 0.4 mg PO HS 02/20/17 [History] Ipratropium Neb [Atrovent Neb] 0.5 mg IH Q4H PRN 03/18/17 [History] Lactose-Reduced Food [Ensure Plus] 1 bottle PO 5-6XD 03/18/17 [History] Lactose-Reduced Food/Fiber [Isosource 1.5 Oscar Liquid] 250 ml GTUBE 1700 [History] Lidocaine Patch [Lidoderm 5% patch] 1 each TP DAILY 03/18/17 [History] Oxycodone HCl 10 mg PO Q8H PRN 03/18/17 [History] Prochlorperazine Maleate [Compazine] 10 mg PO Q6HR PRN 03/18/17 [History] Water for Irrigation (sterile) [Water for irrigation (sterile)] 30 ml IR AD 05/27 [History] Allergies chlorhexidine Adverse Reaction (Mild, Verified 03/18/17 12:23) Itching hydrochlorothiazide Adverse Reaction (Verified 03/18/17 19:43) See Comments per [facility] list All Systems: A 10-system review of systems was performed and is negative for pertinent findings except as documented above in the HPI. Physical Examination Vital Signs: Vital Signs, Last 4 Hours Temp Pulse Resp BP Pulse Ox 03/19/17 06:42 97.4 F L 105 16 151/77 96 03/19/17 04:06 97.8 F 94 16 138/75 97 General appearance: no acute distress, other (Frail thin-appearing) Eyes: nonicteric Effort: normal Auscultation: left: clear, right: diminished breath sounds Cardiovascular: regular rate and rhythm Gastrointestinal: normoactive bowel sounds, non-tender Integumentary: normal Extremities: no cyanosis, no edema Musculoskeletal: no deformities normal mental status, non-focal exam Results - Laboratory Findings CBC and BMP: 03/19/17 03:12 03/19/17 03:12 PT/INR, D-dimer PT 13.0 Seconds (9.4-12.1) H 03/18/17 13:06 Abnormal lab findings: Abnormal lab results RBC 3.11 M/mcL (4.19-5.50) L 03/19/17 03:12 Hgb 9.2 g/dL (12.9-16.9) L 03/19/17 03:12 Hct 28.3 % (37.5-50.1) L 03/19/17 03:12 Lymphocytes # 0.4 K/mcL (0.6-4.6) L 03/19/17 03:12 PT 13.0 Seconds (9.4-12.1) H 03/18/17 13:06 Sodium 128 mEq/L (136-145) L 03/19/17 03:12 Chloride 95 mEq/L (98-109) L 03/19/17 03:12 Creatinine 0.55 mg/dL (0.72-1.25) L 03/19/17 03:12 Calculated Osmolality 264 (280-300) L 03/19/17 03:12 Alkaline Phosphatase 213 Units/L (38-126) H 03/18/17 13:06 C-Reactive Protein 84 mg/L (Less than 5) H 03/18/17 13:06 B-Natriuretic Peptide 319 pg/mL (0-100) H 03/18/17 16:50 Albumin 2.7 g/dL (3.5-5.0) L 03/18/17 13:06 Globulin 4.2 g/dL (2.4-3.5) H 03/18/17 13:06 Albumin/Globulin Ratio 0.6 (1.1-2.2) L 03/18/17 13:06 Lipase < 4 Units/L (8-78) L 03/18/17 13:06 Urine Protein 30 mg/dL (Neg-Trace) H 03/18/17 14:19 Ur Squamous Epith Cells Moderate per lpf (None-Few) H 03/18/17 14:19 Amorphous Sediment Moderate (Few) H 03/18/17 14:19 Urine Bacteria Many per hpf (None-Few) H 03/18/17 14:19 - Diagnostic Findings Chest x-ray: report reviewed, image reviewed CT scan - chest: report reviewed, image reviewed - Clinical Findings Intake & Output: Intake & Output 03/18/17 03/18/17 03/19/17 15:59 23:59 07:59 Intake Total 0 / 0 Balance 0 / 0 Consult Discharge Plan - Plan [facility]errals: [facility] [Primary Care Provider[facility] -
[2017-03-19] MEDS ORDERED: LACTOSE REDUCED FOOD GTUBE SCH ×2 (07:00→17:00)
[2017-03-19] MEDS ORDERED: FIBER GTUBE SCH ×2 (07:00→17:00)
[2017-03-19] MEDS ORDERED: (Lactose-Reduced Food [Ensure Plus] 1 BOTTLE) PO SCH (08:00)
[2017-03-19] MEDS ORDERED: Pantoprazole 40 MG VIAL IVP SCH (09:00)
[2017-03-19] MEDS ORDERED: Nicotine 14 MG PATCH.TD24 TD SCH (09:00)
[2017-03-19 11:04] VITALS: BP 141/76
--- NOTE | 2017-03-19 14:54 | Discharge Summary ---
<Rommel Magaña - Last Filed: 03/19/17 14:51> Date of Encounter: 03/19/17 Time of Encounter: 14:51 - Discharge Diagnosis (1) Leaking PEG tube Priority: Primary Status: Resolved (2) Pneumothorax Priority: Primary Status: Acute Qualifiers: Encounter type: sequela Qualified Code(s): S27.0XXS - Traumatic pneumothorax, sequela (3) Hyponatremia Priority: Secondary Status: Acute (4) Severe protein-calorie malnutrition Priority: Secondary Status: Acute (5) Pleural effusion Priority: Secondary Status: Acute (6) COPD (chronic obstructive pulmonary disease) Priority: Secondary Status: Chronic Qualifiers: COPD type: unspecified COPD Qualified Code(s): J44.9 - Chronic obstructive pulmonary disease, unspecified (7) Metastatic cancer Priority: Secondary Status: Acute (8) Frail elderly Priority: Secondary Status: Acute - Discharge Medications Home Medications: Magic Mouthwash [Magic Mouthwash BLM] 5 ml PO Q4H PRN 08/03/16 [History] Lanolin/Mineral Oil [Eucerin Original Lotion] 1 appl TP DAILY 08/06/16 [History] Loperamide [Imodium] 2 mg PO PER PKG DI PRN 08/06/16 [History] Mag Hydrox/Al Hydrox/Simeth [Maalox] 10 ml PO TID PRN 08/06/16 [History] Propylene Glycol/Peg 400 [Kro Lubricating Rlf 0.3-0.4%] 1 drop BOTH EYES QID [History] Nicotine Patch [Nicoderm] 14 mg TD DAILY 12/31/16 [History] Fludrocortisone Acetate [Florinef] 0.1 mg PO DAILY 01/19/17 [History] Hydrocortisone 2.5% CREAM [Cortaid] 1 appl RC TID PRN 01/19/17 [History] Lactose-Reduced Food/Fiber [Isosource 1.5 Oscar Liquid] 500 ml GTUBE 0700,1200 08/27 [History] Lansoprazole [Prevacid] 30 mg PO DAILY 01/19/17 [History] Ondansetron HCl 4 mg PO Q6H PRN 01/19/17 [History] Sucralfate [Carafate] 1 gm PO ACHS 01/19/17 [History] Budesonide/Formoterol 160/4.5 [Symbicort 160/4.5] 1 puff IH BID 02/20/17 [ History] Diphenhydramine HCl [Nighttime Sleep Aid] 50 mg PO BID PRN 02/20/17 [History] Docusate [Colace] 100 mg PO BID 02/20/17 [History] Lactobacillus [Culturelle] 1 cap PO TID 02/20/17 [History] Levalbuterol HCl [Xopenex Neb] 1.25 mg IH Q4H PRN 02/20/17 [History] Levalbuterol [Xopenex INH] 1 puff IH Q6H PRN 02/20/17 [History] Polyethylene Glycol 3350 [Smoothlax] 17 gm PO DAILY 02/20/17 [History] Sodium Chloride IRRigation [0.9% Sodium Chl For Irrigation 250 Ml Bottle] 20 ml GTUBE BID 02/20/17 [History] Tamsulosin [Flomax] 0.4 mg PO HS 02/20/17 [History] Ipratropium Neb [Atrovent Neb] 0.5 mg IH Q4H PRN 03/18/17 [History] Lactose-Reduced Food [Ensure Plus] 1 bottle PO 5-6XD 03/18/17 [History] Lactose-Reduced Food/Fiber [Isosource 1.5 Oscar Liquid] 250 ml GTUBE 1700 [History] Lidocaine Patch [Lidoderm 5% patch] 1 each TP DAILY 03/18/17 [History] Oxycodone HCl 10 mg PO Q8H PRN 03/18/17 [History] Prochlorperazine Maleate [Compazine] 10 mg PO Q6HR PRN 03/18/17 [History] Water for Irrigation (sterile) [Water for irrigation (sterile)] 30 ml IR AD 05/27 [History] Allergies/Adverse Reactions: Allergies chlorhexidine Adverse Reaction (Mild, Verified 03/18/17 12:23) Itching hydrochlorothiazide Adverse Reaction (Verified 03/18/17 19:43) See Comments per [facility] list Date of admission: 03/19/17 01:22 [facility]: [facility] Consults: 03/19/17 05:02 Consult to Nutrition [CONS] Routine Comment: Consulting Provider: NUTRITION Reason for Dietary Consult: TF Start and Manage Discharging clinician: Rommel Magaña Anticipated date of discharge: 03/19/17 - Patient Status Disposition: Home, Self-Care Condition: Good Functional capacity at discharge: uses cane/walker (fall precaution) Overall status at discharge: patient is progressing back to baseline - Discharge Instructions Follow Up With: [facility] [Primary Care Provider] - (F/u for hospital d/c, peg tube, f/u on his cancer, copd and chronic hyponatremia) Symone Wong MD [Partnered Physician] - (F/u in a week for moderal pleural effusion, trace small pneumothorax) Forms: ED Satisfaction Letter, Work/School Release - Diet and Activity Activity: resume usual activities as tolerated Diet: other (tube feeding through peg tube as he usually does at home) Hospital course: Mr. Cantu is a 76 year old male with a history of metastatic esophageal cancer status post chemotherapy, hypertension, COPD not oxygen dependent, systolic CHF who was transferred from [place] due to concerns of PEG tube malfunction. Apparently his PEG tube was leaking since yesterday but it stopped on the day of admission. CT scan was done at the emergency room of the abdomen showing a trace anterior small pneumothorax on the right side, showed moderate right sized pleural effusion, PEG tube is in the right position not leaking anymore, left adrenal metastases, left lytic ischial tuberosity lesion compatible with metastases and fracture of the left superior pubic ramus. Pulm service was consulted, recommended conservative management and for his pleural effusion, recommended outpt f/u with pulm clinic for possible placement of pleurx cathether. Before he goes home today, will try to run tube feeding once through PEG tube to make sure it runs smoothly w/o any obstruction or leaking, otherwise pt is stable to go home later today. - Time Spent with Patient Total time spent providing and/or coordinating discharge services: - Constitutional Vitals: Temp Pulse Resp BP Pulse Ox 98.2 F 87 16 141/76 96 03/19/17 11:03 03/19/17 11:03 03/19/17 11:03 03/19/17 11:03 03/19/17 11:03 General appearance: Present: cachectic, cooperative, A&O X 3, pleasant, no acute distress, underweight, answers questions appropriately - Respiratory Respiratory exam: Present: decreased breath sounds (diffusely b/l). Absent: accessory muscle use, chest wall tenderness, rales, rhonchi, wheezes - Cardiovascular Cardiovascular exam: Present: RRR, +S1, +S2. Absent: clicks, gallop, rubs, systolic murmur - GI/Abdominal GI/Abdominal exam: Present: normal bowel sounds, soft. Absent: distended, firm , guarding, rebound, rigid, tenderness Additional comments: PEG tube in place, not leaking, nice seal against skin, not loose - Extremities Exam Extremities exam: Present: normal inspection, warm, radial pulses palpable and symetrical. Absent: calf tenderness, pedal edema, tenderness <Brandon Brian - Last Filed: 03/19/17 16:48> Date of Encounter: 03/19/17 - Discharge Diagnosis (1) Pneumothorax Priority: Primary Status: Chronic Qualifiers: Pneumothorax type: chronic pneumothorax Qualified Code(s): J93.81 - Chronic pneumothorax (2) Leaking PEG tube Priority: Primary Status: Resolved (3) Severe protein-calorie malnutrition Status: Chronic (4) Hyponatremia Status: Chronic Comments: Sodium fluctuates but is low most of the time. (5) HTN (hypertension) Priority: Secondary Status: Chronic Qualifiers: Hypertension type: essential hypertension (6) Metastatic cancer Priority: Secondary Status: Chronic Date of admission: 03/19/17 01:22 Primary care physician: PCP [place] Consults: 03/19/17 05:02 Consult to Nutrition [CONS] Routine Comment: Consulting Provider: NUTRITION Reason for Dietary Consult: TF Start and Manage Hospital course: Mr. Cantu is a 76 year old male - Time Spent with Patient Total time spent providing and/or coordinating discharge services: 40min - Constitutional Vitals: Temp Pulse Resp BP Pulse Ox 98.2 F 87 16 141/76 96 03/19/17 11:03 03/19/17 11:03 03/19/17 11:03 03/19/17 11:03 03/19/17 11:03 - Attending Attestation I examined this patient and my medical decision-making was reviewed with the Resident Physician on 03/19/17. I agree with the documented findings, disposition and treatment plan as described except to the extent set forth below. Mr Cantu was admitted due to PEG tube malfunction and PTX. He feels OK at this time. PEG tube is not leaking at this time and bumper was snugged against skin. Appreciate pulm input regarding PTX. He has been afebrile and vitals stable. Exam Alert. Comfortable Heart reg No wheeze PEG tube site has no erythema. No drainage. Bumper snugged against skin and was tight. No edema Plan D/C today. Pt has improved well overnight.
--- NOTE | 2017-03-20 08:59 | Electrocardiograph Report ---
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
== END 2017-03-19 16:50 | disposition home or self-care (01) | DRG 393 ==
LOC: EMEROO 12:16 → 2NENU 12:16 → SUATTDRO 03-19 01:22
PROVIDERS: ADMIT Internal Medicine Sleep Medicine; ATTEND Internal Medicine